=== PATIENT | female | born 1975 | race Two or more races ===

== ENCOUNTER 2018-01-10 19:29 | Emergency (ER) | payer MEDICAID ==
[2018-01-10] MEDS ORDERED: Sodium Chloride 0.9% 1,000 ML IV ONE (20:11)
[2018-01-10] MEDS ORDERED: Morphine Sulfate 4 mg/mL 1mL Syr IV STA (20:15)
[2018-01-10] MEDS ORDERED: Morphine Sulfate 4 mg/mL 1mL Syr ONE (20:19)
--- NOTE | 2018-01-10 20:21 | ED Physician Chart ---
ED Chief Complaint/HPI - Patient Information Date Seen:: 01/10/18 Time Seen:: 20:00 Chief Complaint:: fever, chills, anorexia, diarrhea History of Present Illness:: 5 days ago patient developed chills, subjective fever and anorexia. A few days ago diarrhea started which she has had many times. No vomiting. Patient also has myalgia. No vomiting. Yesterday patient was seen in the clinic and she was noted to have right upper quadrant tenderness but has no right upper quadrant pain. Allergies:: Allergies Allergy/AdvReac Type Severity Reaction Status Date / Time No Known Allergies Allergy Verified 01/10/18 19:53 Vitals:: Vital Signs - 8 hr 01/10/18 19:35 Temp 98.8 F HR 117 RR 18 BP 119/71 O2 Sat % 100 Historian:: Patient Review:: Nurse's Note Reviewed ED Review of Systems - Review of Systems General/Constitutional: Fever, No fever, No weight loss, No weakness, No diaphoresis, No edema, No loss of appetite Skin: No skin lesions, No rash, No bruising Head: No headache, No light-headedness Eyes: No loss of vision, No pain, No diplopia ENT: No earache, No nasal drainage, No sore throat, No tinnitus Neck: No neck pain, No swelling, No thyromegaly, No stiffness, No mass noted Cardio Vascular: No chest pain, No palpitations, No PND, No orthopnea, No edema Pulmonary: No SOB, No cough, No sputum, No wheezing GI: No nausea, No vomiting, Diarrhea, No pain, No melena, No hematochezia, No constipation, No hematemesis G/U: No dysuria, No frequency, No hematuria Musculoskeletal: No bone or joint pain, No back pain, Muscle pain Endocrine: No polyuria, No polydipsia Psychiatric: No prior psych history, No depression, No anxiety, No suicidal ideation Hematopoietic: No bruising, No lymphadenopathy Allergic/Immuno: No urticaria, No angioedema Neurological: No syncope, No focal symptoms, No weakness, No paresthesia, No headache, No seizure, No dizziness, No confusion, No vertigo Family Medical History - Family Member Mother History Unknown: Yes ED Physical Exam - Physical Examination General/Constitutional: Awake, Well-developed, well-nourished, Alert, No distress, GCS 15, Non-toxic appearing, Ambulatory Head: Atraumatic Eyes: Lids, conjuctiva normal, PERRL, EOMI Skin: Nl inspection, No rash, No skin lesions, No ecchymosis, Well hydrated, No lymphadenopathy ENMT: External ears, nose nl, Nasal exam nl, Lips, teeth, gums nl Neck: Nontender, Full ROM w/o pain, No JVD, No nuchal rigidity, No bruit, No mass, No stridor Respiratory: Nl effort/Exclusion, Clear to Auscultation, No Wheeze/Rhonchi/Rales Cardio Vascular: RRR, No murmur, gallop, rubs, NL S1 S2 GI: No organomegaly, No hernia, Normal BS's, Nondistended, No mass/bruits, No McBurney tenderness Other GI comments:: Right upper quadrant tenderness : No CVA tenderness Extremities: No tenderness or effusion, Full ROM, normal strength in all extremities, No edema, Normal digits & nails Neuro/Psych: Alert/oriented, DTR's symmetric, Normal sensory exam, Normal motor strength, Judgement/insight normal, Mood normal, Normal gait, No focal deficits Misc: Normal back, No paraspinal tenderness ED Labs/Radiology/EKG Results - Lab Results Results: Laboratory Results - last 24 hr 01/10/18 01/10/18 20:15 20:15 WBC 11.7 H RBC 4.14 Hgb 10.9 L Hct 33.1 L MCV 79.9 L MCH 26.3 L MCHC Differential 32.9 RDW 16.2 Plt Count 176 MPV 9.2 Add Manual Diff YES Band Neutrophils % 18 H Neutrophils (Manual) 73 Lymphocytes 7 L Monocytes 2 Eosinophils 0 Basophils 0 Platelet Estimate ADEQUATE Platelet Morphology NORMAL Poikilocytosis 2+ Anisocytosis 1+ Microcytosis 1+ Target Cells 1+ Ovalocytes 1+ Kaufman Cells 1+ Schistocytes 1+ RBC Morph Micro Appear ABNORMAL Morphology Comment PLS SEE COMMENT. Smear Path Review SEE BELOW Sodium 134 L Potassium 3.2 L Chloride 103 Carbon Dioxide 20.8 L Anion Gap 13.4 BUN 18 Creatinine 1.2 Est GFR ( Amer) > 60.0 Est GFR (Non-Af Amer) 51.9 BUN/Creatinine Ratio 15.0 Glucose 155 H Calcium 9.1 Total Bilirubin 0.7 AST 27 ALT 21 Alkaline Phosphatase 93 Total Protein 7.8 Albumin 3.2 L Globulin 4.6 Albumin/Globulin Ratio 0.7 L ED Assessment - Assessment General Assessment: Patient appears to have a viral enteritis with diarrhea. Patient has no history of diabetes but her blood sugars 155 so I suggested having a fasting blood sugar done. Suggested patient return to regular diet which she should supplement with half strength Gatorade and extra bananas for her hypokalemia ED Septic Shock - . Is Septic Shock (SBP<90, OR Lactate>4 mmol\L) present?: No - <6hrs of presentation: Vital Signs: Vital Signs - 8 hr 01/10/18 19:35 Temp 98.8 F HR 117 RR 18 BP 119/71 O2 Sat % 100 ED Reassessment (Disposition) - Reassessment Reassessment Condition:: Improved - Diagnosis Diagnosis:: Viral enteritis with diarrhea; hypokalemia; leukocytosis; hyperglycemia; oil and hyponatremia - Aftercare/Follow up Instructions Aftercare/Follow-Up Instructions:: Refer to Discharge Instructions - Patient Disposition Discharge/Transfer:: Home Condition at Disposition:: Stable, Improved
[2018-01-10 20:23] LABS: HEMATOCRIT 33.1 % (41.0-60); HEMOGLOBIN 10.9 gm/dL (12-16); MEAN CELL VOLUME 79.9 fl (81-100); MEAN CORPUSCULAR HEMOGLOBIN 26.3 pg (27.0-31.0); MEAN CORPUSCULAR HGB CONC 32.9 pg (28.0-36.0); MEAN PLATELET VOLUME 9.2 fl; PLATELET COUNT 176 Th/cmm (150-400); RED BLOOD COUNT 4.14 Mil/cmm (3.80-5.10); RED CELL DISTRIBUTION WIDTH 16.2 % (11.5-20.0); WHITE BLOOD COUNT 11.7 Th/cmm (4.8-10.8)
[2018-01-10 20:38] LABS: ALB/GLOB RATIO 0.7 (1.0-1.8); ALBUMIN 3.2 gm/dL (3.7-5.3); ALKALINE PHOSPHATASE 93 U/L (34-104); ANION GAP 13.4 (7.0-16.0); BILIRUBIN,TOTAL 0.7 mg/dL (0.3-1.0); BUN - UREA NITROGEN 18 mg/dL (7-25); CALCIUM SERUM 9.1 mg/dL (8.6-10.3); CARBON DIOXIDE 20.8 mEq/L (21.0-31.0); CHLORIDE 103 mEq/L (98-107); CREATININE - SERUM 1.2 mg/dL (0.6-1.2); GFR AFRICAN-AMERICAN > 60.0 ml/min (>90); GFR NON AFRICAN-AMERICAN 51.9 ml/min; GLUCOSE 155 mg/dL (70-105); POTASSIUM SERUM 3.2 mEq/L (3.5-5.1); SGOT 27 U/L (13-39); SGPT/ALT 21 U/L (7-52); SODIUM SERUM 134 mEq/L (136-145); TOTAL PROTEIN,SERUM 7.8 gm/dL (6.0-8.3)
[2018-01-10] MEDS ORDERED: Potassium Chloride 20 mEq ER Tab PO ONE ×2 (21:02→21:18)
[2018-01-10 21:18] LABS: ANISOCYTOSIS 1+; BAND NEUTROPHILE 18 % (0-10); BASOPHIL 0 % (0-3); EOSINOPHIL 0 % (0-5); LYMPHOCYTE 7 % (20-50); MONOCYTE 2 % (2-10); NEUTROPHILS 73 % (40-80); PLATELET ESTIMATE ADEQUATE (NORMAL); PLATELET MORPHOLOGY NORMAL (NORMAL); POIKILOCYTOSIS 2+
[2018-01-10 21:19] LABS: BURR CELLS 1+; OVALOCYTES 1+; SCHISTOCYTES 1+; TARGET CELLS 1+
[2018-01-10 21:21] LABS: MORPHOLOGY COMMENT PLS SEE COMMENT.
== END 2018-01-10 22:00 | disposition home or self-care (01) ==
LOC: ER 19:29
DX: A08.4 Viral intestinal infection, unspecified (principal); E87.6 Hypokalemia; E87.1 Hypo-osmolality and hyponatremia; D72.829 Elevated white blood cell count, unspecified; R73.9 Hyperglycemia, unspecified
CPT/HCPCS: 36415-UA; 80053-TC; 83735-TC; 85007-TC; 85025-TC; 96374; J7030; Z7502

== ENCOUNTER 2018-01-11 16:39 | Inpatient (IN) | payer MEDICAID ==
[2018-01-11] MEDS ORDERED: Lactated Ringer 1,000 ML IV ONE ×2 (17:10→19:10)
[2018-01-11 17:43] LABS: URINE SOURCE CLEAN C
[2018-01-11 17:48] LABS: URINE BILIRUBIN MODERATE (NEGATIVE); URINE BLOOD NEGATIVE (NEGATIVE); URINE GLUCOSE (UA) NEGATIVE (NEGATIVE); URINE KETONE 15 mg/dL (NEGATIVE); URINE LEUKOCYTE ESTERASE NEGATIVE (NEGATIVE); URINE NITRATE NEGATIVE (NEGATIVE); URINE PROTEIN 100 mg/dL (NEGATIVE)
[2018-01-11 17:51] LABS: HEMATOCRIT 31.9 % (41.0-60); HEMOGLOBIN 10.6 gm/dL (12-16); MEAN CELL VOLUME 79.5 fl (81-100); MEAN CORPUSCULAR HEMOGLOBIN 26.4 pg (27.0-31.0); MEAN CORPUSCULAR HGB CONC 33.2 pg (28.0-36.0); RED BLOOD COUNT 4.01 Mil/cmm (3.80-5.10)
[2018-01-11 17:52] LABS: ALB/GLOB RATIO 0.7 (1.0-1.8); ALBUMIN 3.2 gm/dL (3.7-5.3); ALKALINE PHOSPHATASE 96 U/L (34-104); AMYLASE SERUM 22 U/L (29-103); BILIRUBIN,TOTAL 0.7 mg/dL (0.3-1.0); BUN - UREA NITROGEN 21 mg/dL (7-25); CALCIUM SERUM 9.2 mg/dL (8.6-10.3); CARBON DIOXIDE 20.8 mEq/L (21.0-31.0); CHLORIDE 103 mEq/L (98-107); GFR AFRICAN-AMERICAN > 60.0 ml/min (>90); GFR NON AFRICAN-AMERICAN > 60.0 ml/min; GLUCOSE 146 mg/dL (70-105); LIPASE 13 U/L (11-82); MAGNESIUM 1.9 mg/dL (1.9-2.7); MEAN PLATELET VOLUME 10.3 fl; PHOSPHOROUS 2.7 mg/dL (2.5-5.0); PLATELET COUNT 141 Th/cmm (150-400); POTASSIUM SERUM 3.8 mEq/L (3.5-5.1); RED CELL DISTRIBUTION WIDTH 16.5 % (11.5-20.0); SGOT 26 U/L (13-39); SGPT/ALT 19 U/L (7-52); SODIUM SERUM 133 mEq/L (136-145)
[2018-01-11 17:57] LABS: WHITE BLOOD COUNT 18.6 Th/cmm (4.8-10.8)
[2018-01-11 17:58] LABS: URINE CLARITY CLEAR (CLEAR); URINE COLOR YELLOW; URINE MICROSCOPIC INDICATED? YES
[2018-01-11 18:00] LABS: AMPHETAMINE URINE NEGATIVE (NEGATIVE); BARBITURATES URINE NEGATIVE (NEGATIVE); BENZODIAZEPINES QUAL URINE NEGATIVE (NEGATIVE); CANNABINOID THC NEGATIVE (NEGATIVE); COCAINE METABOLITE QUAL URINE NEGATIVE (NEGATIVE); METHADONE URINE NEGATIVE (NEGATIVE); METHAMPHETAMINES QUAL URINE NEGATIVE (NEGATIVE); OPIATES (MORPHINE) QUAL. URINE POSITIVE (NEGATIVE); PHENCYCLIDINE (PCP) URINE NEGATIVE (NEGATIVE); TRICYCLICS (TCA) QUAL. URINE NEGATIVE (NEGATIVE)
[2018-01-11 18:03] LABS: URINE BACTERIA 2+ /hpf (NONE SEEN); URINE EPITHELIAL CELLS FEW /lpf (FEW); URINE WBC 0-2 /hpf (0-5)
[2018-01-11] MEDS ORDERED: metroNIDAZOLE 500mg/NS 100mL 500 MG/100 ML BAG IV ONE ×2 (18:13→19:35)
[2018-01-11 18:19] LABS: BAND NEUTROPHILE 7 % (0-10); NEUTROPHILS 81 % (40-80)
[2018-01-11 18:20] LABS: LYMPHOCYTE 9 % (20-50); MONOCYTE 3 % (2-10)
[2018-01-11 18:36] LABS: INR 1.02 (0.5-1.4); PROTHROMBIN TIME (TEST) 10.6 SECONDS (9.5-11.5)
[2018-01-11] MEDS ORDERED: IOHEXOL 350mgI/mL 100mL Bottle IVP ONE (18:36)
[2018-01-11] MEDS ORDERED: IOHEXOL 350mgI/mL 150mL IV ONE (18:59)
--- NOTE | 2018-01-11 19:03 | ED Physician Chart ---
ED Chief Complaint/HPI - Patient Information Date Seen:: 01/11/18 Time Seen:: 16:57 Chief Complaint:: abd pain, diarrhea, myalgias History of Present Illness:: abd pain, diarrhea, myalgias Allergies:: Allergies Allergy/AdvReac Type Severity Reaction Status Date / Time No Known Allergies Allergy Verified 01/10/18 19:53 Vitals:: Vital Signs - 8 hr 01/11/18 01/11/18 01/11/18 16:57 18:04 18:38 Temp 98.6 F 98.4 F 99.3 F HR 102 103 105 RR 18 27 25 BP 139/77 127/71 124/66 O2 Sat % 100 98 100 Historian:: Patient Review:: Nurse's Note Reviewed ED Review of Systems - Review of Systems General/Constitutional: No fever, No chills, No weight loss, Weakness, No diaphoresis, No edema, No loss of appetite Skin: No skin lesions, No rash, No bruising Head: No headache, No light-headedness Eyes: No loss of vision, No pain, No diplopia Neck: No neck pain, No swelling, No thyromegaly, No stiffness, No mass noted Pulmonary: SOB GI: Nausea, No vomiting, Diarrhea G/U: No dysuria, No frequency, No hematuria Musculoskeletal: Muscle pain Endocrine: No polyuria, No polydipsia Psychiatric: No prior psych history, No depression, No anxiety, No suicidal ideation Hematopoietic: No bruising, No lymphadenopathy Allergic/Immuno: No urticaria, No angioedema Neurological: No syncope, No focal symptoms, No weakness, No paresthesia, No headache, No seizure, No dizziness, No confusion, No vertigo ED Past Medical History - Past Medical History Obtainable: Yes Surgical History: other (gastric sleeve; tubal ligation) Family Medical History - Family Member Mother History Unknown: Yes ED Physical Exam - Physical Examination General/Constitutional: Awake Other Gen/Cons comments:: ill-appearing female. obese. Head: Atraumatic Eyes: Lids, conjuctiva normal, PERRL, EOMI Skin: Nl inspection, No rash, No skin lesions, No ecchymosis, No lymphadenopathy Other ENMT comments:: dry mucous membranes. Neck: Nontender, Full ROM w/o pain, No JVD, No nuchal rigidity, No bruit, No mass, No stridor Respiratory: Nl effort/Exclusion, Clear to Auscultation, No Wheeze/Rhonchi/Rales Other Cardio Vascular comments:: tachycardia GI: No tenderness/rebounding/guarding, No organomegaly, No hernia, Normal BS's, Nondistended, No mass/bruits, No McBurney tenderness Other GI comments:: RUQ tenderness to palpation. No peritoneal signs. Obese abdomen. : No CVA tenderness Other Extremities comments:: R ankle with medial swelling and redness. Negative Isaac's. No calf tenderness. Neuro/Psych: Alert/oriented, Normal sensory exam, Normal motor strength, Judgement/insight normal, Mood normal Misc: Normal back, No paraspinal tenderness ED Labs/Radiology/EKG Results - Lab Results Results: Laboratory Tests 01/11/18 01/11/18 01/11/18 17:15 17:15 17:25 WBC 18.6 H D RBC 4.01 Hgb 10.6 L Hct 31.9 L MCV 79.5 L MCH 26.4 L MCHC Differential 33.2 RDW 16.5 Plt Count 141 L MPV 10.3 Add Manual Diff YES Neutrophils % [employer] PROGRAM DIRECTOR Band Neutrophils % 7 Lymphocytes % MEMORY CARE PROGRAM DIRECTOR Monocytes % MEMORY CARE PROGRAM DIRECTOR Eosinophils % MEMORY CARE PROGRAM DIRECTOR Basophils % MEMORY CARE PROGRAM DIRECTOR Neutrophils (Manual) 81 H Lymphocytes 9 L Monocytes 3 Microcytosis 1+ PT INR PTT (Actin FS) D-Dimer Sodium Potassium Chloride Carbon Dioxide Anion Gap BUN Creatinine Est GFR ( Amer) Est GFR (Non-Af Amer) BUN/Creatinine Ratio Glucose Whole Bld Lactic Acid Calcium Phosphorus Magnesium Total Bilirubin AST ALT Alkaline Phosphatase Total Protein Albumin Globulin Albumin/Globulin Ratio Amylase Lipase Urine Source CLEAN C Urine Color YELLOW Urine Clarity CLEAR Urine pH 6.0 Ur Specific [place] 1.025 Urine Protein 100 H Urine Glucose (UA) NEGATIVE Urine Ketones 15 H Urine Blood NEGATIVE Urine Nitrate NEGATIVE Urine Bilirubin MODERATE H Urine Ictotest Not Reportable Urine Urobilinogen 1.0 Ur Leukocyte Esterase NEGATIVE Urine RBC 2-5 Urine WBC 0-2 Ur Epithelial Cells FEW Urine Bacteria 2+ H Urine Mucus FEW Urine Opiates Screen POSITIVE H Urine Methadone Screen NEGATIVE Ur Barbiturates Screen NEGATIVE Ur Tricyclics Screen NEGATIVE Ur Phencyclidine Scrn NEGATIVE Amphetamines Screen NEGATIVE U Methamphetamines Scrn NEGATIVE U Benzodiazepines Scrn NEGATIVE U Cocaine Metab Screen NEGATIVE U Cannabinoids Screen NEGATIVE 01/11/18 01/11/1818 17:25 17:25 17:25 WBC RBC Hgb Hct MCV MCH MCHC Differential RDW Plt Count MPV Add Manual Diff Neutrophils % Band Neutrophils % Lymphocytes % Monocytes % Eosinophils % Basophils % Neutrophils (Manual) Lymphocytes Monocytes Microcytosis PT INR PTT (Actin FS) D-Dimer 3890 H Sodium 133 L Potassium 3.8 Chloride 103 Carbon Dioxide 20.8 L Anion Gap 13.0 BUN 21 Creatinine 1.0 Est GFR ( Amer) > 60.0 Est GFR (Non-Af Amer) > 60.0 BUN/Creatinine Ratio 21.0 Glucose 146 H Whole Bld Lactic Acid 1.59 Calcium 9.2 Phosphorus 2.7 Magnesium 1.9 Total Bilirubin 0.7 AST 26 ALT 19 Alkaline Phosphatase 96 Total Protein 8.0 Albumin 3.2 L Globulin 4.8 Albumin/Globulin Ratio 0.7 L Amylase 22 L Lipase 13 Urine Source Urine Color Urine Clarity Urine pH Ur Specific [place] Urine Protein Urine Glucose (UA) Urine Ketones Urine Blood Urine Nitrate Urine Bilirubin Urine Ictotest Urine Urobilinogen Ur Leukocyte Esterase Urine RBC Urine WBC Ur Epithelial Cells Urine Bacteria Urine Mucus Urine Opiates Screen Urine Methadone Screen Ur Barbiturates Screen Ur Tricyclics Screen Ur Phencyclidine Scrn Amphetamines Screen U Methamphetamines Scrn U Benzodiazepines Scrn U Cocaine Metab Screen U Cannabinoids Screen 01/11/18 17:25 WBC RBC Hgb Hct MCV MCH MCHC Differential RDW Plt Count MPV Add Manual Diff Neutrophils % Band Neutrophils % Lymphocytes % Monocytes % Eosinophils % Basophils % Neutrophils (Manual) Lymphocytes Monocytes Microcytosis PT 10.6 INR 1.02 PTT (Actin FS) 31.9 D-Dimer Sodium Potassium Chloride Carbon Dioxide Anion Gap BUN Creatinine Est GFR ( Amer) Est GFR (Non-Af Amer) BUN/Creatinine Ratio Glucose Whole Bld Lactic Acid Calcium Phosphorus Magnesium Total Bilirubin AST ALT Alkaline Phosphatase Total Protein Albumin Globulin Albumin/Globulin Ratio Amylase Lipase Urine Source Urine Color Urine Clarity Urine pH Ur Specific [place] Urine Protein Urine Glucose (UA) Urine Ketones Urine Blood Urine Nitrate Urine Bilirubin Urine Ictotest Urine Urobilinogen Ur Leukocyte Esterase Urine RBC Urine WBC Ur Epithelial Cells Urine Bacteria Urine Mucus Urine Opiates Screen Urine Methadone Screen Ur Barbiturates Screen Ur Tricyclics Screen Ur Phencyclidine Scrn Amphetamines Screen U Methamphetamines Scrn U Benzodiazepines Scrn U Cocaine Metab Screen U Cannabinoids Screen ED Assessment - Assessment General Assessment: phone call to Dr. Viveros prior to change in shift to give him report at 18:55 p.m. Assessment/Comments:: sign out given to Dr. Samuel at 7 p.m. report (prior to GIRISH and CT angiogram) given to Dr. Viverso who is giving admit orders right now at 7:09 p.m. ED Septic Shock - . Is Septic Shock (SBP<90, OR Lactate>4 mmol\L) present?: No - <6hrs of presentation: Vital Signs: Vital Signs - 8 hr 01/11/18 01/11/18 01/11/18 16:57 18:04 18:38 Temp 98.6 F 98.4 F 99.3 F HR 102 103 105 RR 18 27 25 BP 139/77 127/71 124/66 O2 Sat % 100 98 100 ED Reassessment (Disposition) - Reassessment Reassessment Condition:: Unchanged - Diagnosis Diagnosis:: Sepsis Cholecystitis Leukocytosis Diarrhea Proteinuria Bilirubin in urine Possible Hepatitis A, B or C Anemia - Patient Disposition Discharge/Transfer:: Acute Care w/in this hosp Admitted to:: ICU Condition at Disposition:: Stable, Unchanged
[2018-01-11] MEDS ORDERED: D5-0.45NS 1,000 ML IV SCH (21:00)
[2018-01-11 21:28] VITALS: BP 99/55
[2018-01-11] MEDS ORDERED: Piperacillin Sodium/Tazobact 3.375 gm Vial IV ONE (22:36)
[2018-01-11] MEDS: Morphine Sulfate 2 mg/mL 1mL Syr IVP PRN (22:52)
[2018-01-11] MEDS: D5-0.45NS 1,000 ML IV SCH (22:52)
--- NOTE | 2018-01-11 23:36 | Consultation ---
Consult Note - Consult Note Service Date: 01/11/18 Referring Physician: Ollie Viveros Consult Note: PHYSICIAN Consultation Note: Date of Admission: 01/11/18 Purpose of Consultation: Sepsis/ Chief Complaint: Patient YEIMY LEÓN was admitted to location Intensive Care Unit with SEPSIS, RULE OUT CHOLECYSTITIS. History of Present Illness: 42-year-old female with no significant medical conditions, presented to the ED for generalized sharp abdominal pains associated with diarrhea. She ahd complained of fevers and chills. On initial evaluation, her temperature was 98.6 F and WBC Count was 18,600. Vanco IV 2G IV x1 with Zosyn and flagyl were started and ID consult was called for antibiotic management. 3L IV NS boluses were given in total and IV fluid increased to 150ml/hr as her SBP was in 90s. patient denies any relation with any food or travels. Past Medical History: None. Gastric bypass surgery. ESSURE placed in b/l fallopian tube ( control device). Allergies Allergy/AdvReac Type Severity Reaction Status Date / Time No Known Allergies Allergy Verified 01/10/18 19:53 Vital Signs Temp 99.3 F 01/11/18 18:38 Pulse 105 01/11/18 18:38 Resp 25 01/11/18 18:38 BP 99/55 01/11/18 21:27 Pulse Ox 100 01/11/18 18:38 Intake & Output 01/11/18 01/11/18 01/12/18 06:59 18:59 06:59 Weight (lbs) 107.955 kg 107.955 kg 110.268 kg Other: Weight [facility] Laboratory Results - last 24 hr 01/11/18 01/11/18 01/11/18 17:15 17:15 17:25 WBC 18.6 H D RBC 4.01 Hgb 10.6 L Hct 31.9 L MCV 79.5 L MCH 26.4 L MCHC Differential 33.2 RDW 16.5 Plt Count 141 L MPV 10.3 Add Manual Diff YES Neutrophils % [employer] SUPERVISOR Band Neutrophils % 7 Lymphocytes % [employer]ITE [employer]GAR SUPERVISOR Monocytes % WHITE [employer]GAR SUPERVISOR Eosinophils % WHITE [employer] SUPERVISOR Basophils % WHITE [employer] SUPERVISOR Neutrophils (Manual) 81 H Lymphocytes 9 L Monocytes 3 Microcytosis 1+ ESR PT INR PTT (Actin FS) D-Dimer Sodium Potassium Chloride Carbon Dioxide Anion Gap BUN Creatinine Est GFR ( Amer) Est GFR (Non-Af Amer) BUN/Creatinine Ratio Glucose POC Glucose Whole Bld Lactic Acid Calcium Phosphorus Magnesium Total Bilirubin AST ALT Alkaline Phosphatase Creatine Kinase Total Protein Albumin Globulin Albumin/Globulin Ratio Amylase Lipase Urine Source CLEAN C Urine Color YELLOW Urine Clarity CLEAR Urine pH 6.0 Ur Specific [place] 1.025 Urine Protein 100 H Urine Glucose (UA) NEGATIVE Urine Ketones 15 H Urine Blood NEGATIVE Urine Nitrate NEGATIVE Urine Bilirubin MODERATE H Urine Ictotest Not Reportable Urine Urobilinogen 1.0 Ur Leukocyte Esterase NEGATIVE Urine RBC 2-5 Urine WBC 0-2 Ur Epithelial Cells FEW Urine Bacteria 2+ H Urine Mucus FEW Urine Opiates Screen POSITIVE H Urine Methadone Screen NEGATIVE Ur Barbiturates Screen NEGATIVE Ur Tricyclics Screen NEGATIVE Ur Phencyclidine Scrn NEGATIVE Amphetamines Screen NEGATIVE U Methamphetamines Scrn NEGATIVE U Benzodiazepines Scrn NEGATIVE U Cocaine Metab Screen NEGATIVE U Cannabinoids Screen NEGATIVE 01/11/18 01/11/18 01/11/18 17:25 17:25 17:25 WBC RBC Hgb Hct MCV MCH MCHC Differential RDW Plt Count MPV Add Manual Diff Neutrophils % Band Neutrophils % Lymphocytes % Monocytes % Eosinophils % Basophils % Neutrophils (Manual) Lymphocytes Monocytes Microcytosis ESR 57 H PT INR PTT (Actin FS) D-Dimer Sodium 133 L Potassium 3.8 Chloride 103 Carbon Dioxide 20.8 L Anion Gap 13.0 BUN 21 Creatinine 1.0 Est GFR ( Amer) > 60.0 Est GFR (Non-Af Amer) > 60.0 BUN/Creatinine Ratio 21.0 Glucose 146 H POC Glucose Whole Bld Lactic Acid 1.59 Calcium 9.2 Phosphorus 2.7 Magnesium 1.9 Total Bilirubin 0.7 AST 26 ALT 19 Alkaline Phosphatase 96 Creatine Kinase Total Protein 8.0 Albumin 3.2 L Globulin 4.8 Albumin/Globulin Ratio 0.7 L Amylase 22 L Lipase 13 Urine Source Urine Color Urine Clarity Urine pH Ur Specific [place] Urine Protein Urine Glucose (UA) Urine Ketones Urine Blood Urine Nitrate Urine Bilirubin Urine Ictotest Urine Urobilinogen Ur Leukocyte Esterase Urine RBC Urine WBC Ur Epithelial Cells Urine Bacteria Urine Mucus Urine Opiates Screen Urine Methadone Screen Ur Barbiturates Screen Ur Tricyclics Screen Ur Phencyclidine Scrn Amphetamines Screen U Methamphetamines Scrn U Benzodiazepines Scrn U Cocaine Metab Screen U Cannabinoids Screen 01/11/18 01/11/18 01/11/18 17:25 17:25 17:25 WBC RBC Hgb Hct MCV MCH MCHC Differential RDW Plt Count MPV Add Manual Diff Neutrophils % Band Neutrophils % Lymphocytes % Monocytes % Eosinophils % Basophils % Neutrophils (Manual) Lymphocytes Monocytes Microcytosis ESR PT 10.6 INR 1.02 PTT (Actin FS) 31.9 D-Dimer 3890 H Sodium Potassium Chloride Carbon Dioxide Anion Gap BUN Creatinine Est GFR ( Amer) Est GFR (Non-Af Amer) BUN/Creatinine Ratio Glucose POC Glucose Whole Bld Lactic Acid Calcium Phosphorus Magnesium Total Bilirubin AST ALT Alkaline Phosphatase Creatine Kinase 111 Total Protein Albumin Globulin Albumin/Globulin Ratio Amylase Lipase Urine Source Urine Color Urine Clarity Urine pH Ur Specific [place] Urine Protein Urine Glucose (UA) Urine Ketones Urine Blood Urine Nitrate Urine Bilirubin Urine Ictotest Urine Urobilinogen Ur Leukocyte Esterase Urine RBC Urine WBC Ur Epithelial Cells Urine Bacteria Urine Mucus Urine Opiates Screen Urine Methadone Screen Ur Barbiturates Screen Ur Tricyclics Screen Ur Phencyclidine Scrn Amphetamines Screen U Methamphetamines Scrn U Benzodiazepines Scrn U Cocaine Metab Screen U Cannabinoids Screen 01/11/18 01/11/18 19:55 20:48 WBC RBC Hgb Hct MCV MCH MCHC Differential RDW Plt Count MPV Add Manual Diff Neutrophils % Band Neutrophils % Lymphocytes % Monocytes % Eosinophils % Basophils % Neutrophils (Manual) Lymphocytes Monocytes Microcytosis ESR PT INR PTT (Actin FS) D-Dimer 3890 H Sodium Potassium Chloride Carbon Dioxide Anion Gap BUN Creatinine Est GFR ( Amer) Est GFR (Non-Af Amer) BUN/Creatinine Ratio Glucose POC Glucose 99 Whole Bld Lactic Acid Calcium Phosphorus Magnesium Total Bilirubin AST ALT Alkaline Phosphatase Creatine Kinase Total Protein Albumin Globulin Albumin/Globulin Ratio Amylase Lipase Urine Source Urine Color Urine Clarity Urine pH Ur Specific [place] Urine Protein Urine Glucose (UA) Urine Ketones Urine Blood Urine Nitrate Urine Bilirubin Urine Ictotest Urine Urobilinogen Ur Leukocyte Esterase Urine RBC Urine WBC Ur Epithelial Cells Urine Bacteria Urine Mucus Urine Opiates Screen Urine Methadone Screen Ur Barbiturates Screen Ur Tricyclics Screen Ur Phencyclidine Scrn Amphetamines Screen U Methamphetamines Scrn U Benzodiazepines Scrn U Cocaine Metab Screen U Cannabinoids Screen Home Medication Medication Instructions Recorded Type NK [No Home Meds] 01/11/18 History Current Medications Generic Name Dose Route Start Last Admin Trade Name Freq PRN Reason Stop Dose Admin Metronidazole 500 mg in 100 mls @ 100 mls/hr 01/12/18 05:00 Flagyl IV 03/13/18 04:59 Q8HR JOSE Vancomycin HCl 1 gm/ Sodium 250 mls @ 165 mls/hr 01/11/18 19:55 Chloride IV 03/12/18 19:54 Q24H JOSE Piperacillin Sod/Tazobactam 50 mls @ 100 mls/hr 01/12/18 00:00 Sod 3.375 gm/ Sodium Chloride IV 03/13/18 00:00 Q6HR JOSE Protocol Vancomycin HCl 1.25 gm/ Sodium 250 mls @ 165 mls/hr 01/11/18 22:30 01/11/18 22:51 Chloride IV 01/12/18 01:30 165 mls/hr 2230 JOSE Administration Dextrose/Sodium Chloride 1,000 mls @ 150 mls/hr 01/11/18 22:50 01/11/18 22:52 D5-0.45ns IV 03/12/18 22:49 150 mls/hr .[id number] JOSE Administration Miscellaneous 1 ea 01/11/18 21:59 Vancomycin Iv Per Pharmacy 03/12/18 21:58 ONCE PRN PROTOCOL Miscellaneous 1 ea 01/11/18 23:28 Vancomycin Iv Per Pharmacy 03/12/18 23:27 PRN PRN PROTOCOL Morphine Sulfate 1 mg 01/11/18 22:28 01/11/18 22:52 Morphine IVP 03/12/18 22:27 1 mg Q3H PRN Administration Severe Pain Ondansetron HCl 4 mg 01/11/18 19:55 Zofran IV 03/12/18 19:54 Q4HR PRN nausea/vomit Pantoprazole Sodium 40 mg 01/12/18 07:30 Protonix IVP 03/13/18 07:29 QDAC [facility] Review of Systems: A 12 point ROS was reviewed with the pertinent positive and negatives noted in the HPI. General/Constitutional: c/o fever and chills. No weight loss, Weakness, No diaphoresis, No edema, No loss of appetite Skin: No skin lesions, No rash, No bruising Head: No headache, No light-headedness Eyes: No loss of vision, No pain, No diplopia Neck: No neck pain, No swelling, No thyromegaly, No stiffness, No mass noted Pulmonary: SOB GI: Nausea, No vomiting, Diarrhea G/U: No dysuria, No frequency, No hematuria Musculoskeletal: Muscle pain Endocrine: No polyuria, No polydipsia Psychiatric: No prior psych history, No depression, No anxiety, No suicidal ideation Hematopoietic: No bruising, No lymphadenopathy Allergic/Immuno: No urticaria, No angioedema Neurological: No syncope, No focal symptoms, No weakness, No paresthesia, No headache, No seizure, No dizziness, No confusion, No vertigo Social History Smoking Status Never smoker Family Medical History Unknown. Physical Exam: General: Comfortable. not in any acute distress. HEENT: HEAD: Normocephalic, atraumatic. ORAL CAVITY: moist, pink tongue. EYES: Pupil PERRLA. EOMI. Neck: Supple, no JVD, no Carotid bruit. Cardio: S1 and S2 WNL Respiratory: CTAP. Abdominal: Soft generalized tenderness, BS present. Genital/Urinary: Deferred. Extremities: NCCE. Neurological: Alert awake, oriented x3, No focal neuro deficit. Assessment: 1. Septic shock. 2. Abdominal pain with wide differential includes, Gastroenteritis, Cholecystitis, appendicitis, Essure infection and others. Not limited to the above mentioned. 3. H/o Gastric bypass. Plan: Will continue Zosyn and flagyl. stool studies. IVF bolus. IVF increase to 200ml for 4 hrs and then decrease IVF to 150ml/hr. Sepsis w/u. Gyne consult. If patient does not get better, than transfer to the higher level of care, with gynecological services available. Thank you, I will follow with you. Swathi, Polo Bales M.D. [id number]
[2018-01-12] MEDS: metroNIDAZOLE 500mg/NS 100mL 500 MG/100 ML BAG IV SCH ×3 (05:09→20:54)
[2018-01-12 05:13] LABS: HEMATOCRIT 25.2 % (41.0-60); HEMOGLOBIN 8.4 gm/dL (12-16); MEAN CELL VOLUME 78.8 fl (81-100); MEAN CORPUSCULAR HEMOGLOBIN 26.3 pg (27.0-31.0); MEAN CORPUSCULAR HGB CONC 33.4 pg (28.0-36.0); MEAN PLATELET VOLUME 9.8 fl; PLATELET COUNT 101 Th/cmm (150-400); RED BLOOD COUNT 3.21 Mil/cmm (3.80-5.10); RED CELL DISTRIBUTION WIDTH 16.4 % (11.5-20.0)
[2018-01-12 05:33] LABS: ALB/GLOB RATIO 0.7 (1.0-1.8); ALBUMIN 2.4 gm/dL (3.7-5.3); ALKALINE PHOSPHATASE 70 U/L (34-104); ANION GAP 9.1 (7.0-16.0); BILIRUBIN,TOTAL 0.7 mg/dL (0.3-1.0); BUN - UREA NITROGEN 14 mg/dL (7-25); CARBON DIOXIDE 21.2 mEq/L (21.0-31.0); CHLORIDE 107 mEq/L (98-107); CREATININE - SERUM 0.8 mg/dL (0.6-1.2); GFR AFRICAN-AMERICAN > 60.0 ml/min (>90); GFR NON AFRICAN-AMERICAN > 60.0 ml/min; GLUCOSE 214 mg/dL (70-105); MAGNESIUM 1.8 mg/dL (1.9-2.7); POTASSIUM SERUM 3.3 mEq/L (3.5-5.1); SGOT 19 U/L (13-39); SGPT/ALT 13 U/L (7-52); SODIUM SERUM 134 mEq/L (136-145)
[2018-01-12 05:42] LABS: WHITE BLOOD COUNT 18.6 Th/cmm (4.8-10.8)
[2018-01-12] MEDS ORDERED: Piperacillin Sodium/Tazobact 3.375 gm Vial IV ONE (06:03)
[2018-01-12 06:42] LABS: BAND NEUTROPHILE 1 % (0-10); LYMPHOCYTE 5 % (20-50); MONOCYTE 4 % (2-10); NEUTROPHILS 90 % (40-80)
[2018-01-12] MEDS: D5-0.45NS 1,000 ML IV SCH ×2 (08:28→16:19)
--- NOTE | 2018-01-12 08:32 | Diagnostic Imaging Report ---
CT pulmonary angiogram with intravenous contrast History: Pulmonary embolism Total DLP equals 370 CTDI equals 10.2 Following administration of intravenous contrast, axial sections were obtained from a level above the clavicles down to a level below the diaphragm. The exam demonstrates normal opacification of the main right and left pulmonary arteries. No intraluminal lesions are seen. Specifically, no evidence of pulmonary embolism. There is preservation of normal fat planes throughout the mediastinum. No lymphadenopathy is seen. Incidentally noted osteochondroma of the upper left ribs extending into the pericardial space. Clinical correlation recommended. No abnormal focal pulmonary parenchymal masses or nodules are seen. No pleural effusions. Impression: No evidence of pulmonary emboli bilaterally. 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
--- NOTE | 2018-01-12 09:37 | Diagnostic Imaging Report ---
Exam: Pelvic ultrasound. HISTORY: Foreign bodies in uterus, sepsis 5. Skull Real-time ultrasound summation of pelvis was performed utilizing transvaginal technique. The study extremely limited due to large amount of intra-abdominal bowel gas. The uterus is enlarged measuring 18.2 x 12.3 x 12.9 cm diameter. Age endometrial thickness was not visualized. The adnexa is poorly seen ovaries not visualized. There is evidence of fibrotic aeration of the uterus throughout. Endometrial thickness is not seen. IMPRESSION: Enlargement of the uterus with fibroid infiltration. The study extremely limited due to size of patient as well as large amount of intra-abdominal bowel gas. Ovaries not visualized. Endometrial thickness is not seen.
--- NOTE | 2018-01-12 09:39 | Diagnostic Imaging Report ---
Exam: Ultrasound examination abdomen HISTORY: Sepsis Findings: Real-time ultrasound examination abdomen performed multiple planes. The study demonstrates unremarkable appearance of liver parenchyma. The gallbladder is poorly seen there is no evidence of cholelithiasis. The common bile duct measures 3 mm. The pancreas not seen. There is no evidence of obstructive uropathy or nephrolithiasis. IMPRESSION: extremely limited examination of the abdomen. No evidence for cholelithiasis. Clinical correlation recommended.
--- NOTE | 2018-01-12 09:41 | Diagnostic Imaging Report ---
Portable chest x-ray Time: 180 History: Sepsis Allowing for portable technique the heart size is normal. No focal pulmonary parenchymal processes. No hilar or mediastinal abnormalities. There is a nodularity in left midlung, CT examination of the chest demonstrated the osteochondroma off one of the left lateral rib. Impression: No acute abnormalities.
--- NOTE | 2018-01-12 09:45 | Diagnostic Imaging Report ---
Exam: CT examination abdomen pelvis. HISTORY: Abdominal pain. Total DLP equals 840 CTDI equals 11.5 Findings: Multiple contiguous thin section of the abdomen pelvis obtained from lower thorax to pubic symphysis without the administration of oral intravenous contrast material, no prior studies available comparison The study demonstrates normal aeration of lung parenchyma the bases. The liver and spleen intact. Gastric bypass procedure sequela appreciated. The gallbladder free of calculi. The kidneys demonstrate no evidence of obstructive uropathy or nephrolithiasis. No free fluid is noted. There is evidence for enlargement of the uterus extending in the upper abdomen. Fibroid infiltration cannot be excluded. There is evidence of for review pattern bodies in the uterus which might represent previous a tubal ligation procedure sequela. No free fluid is noted. Bony structures demonstrate no evidence for lytic or blastic changes There is evidence of for appears to be 9 lucency in the body of the L5 lumbar vertebra bowel cyst cannot be excluded. Clinical correlation recommended. Most might be helpful IMPRESSION: Significant distended enlarged uterus most likely due to fibroid infiltration Metallic linear foreign bodies within the uterus most likely represent previous tubal ligation sequela Clinical correlation recommended. Previous gastric bypass surgery. Incidentally noted a large osteochondroma of one of the upper mid left ribs extending into the pericardial space. Clinical correlation recommended
--- NOTE | 2018-01-12 09:46 | Diagnostic Imaging Report ---
Exam: Right ankle joint. HISTORY: Pain swelling Multiple views of the right ankle reviewed. The study demonstrates no evidence of fracture dislocation. The ankle mortise intact. There is no evidence of soft tissue swelling. IMPRESSION:: unremarkable examination of the right ankle joint.
--- NOTE | 2018-01-12 12:34 | History & Physical ---
ADMIT DATE: 01/12/2018 CHIEF COMPLAINT: Fever, body aches, abdominal pain. HISTORY OF PRESENT ILLNESS: This is a 42-year-old female with no major medical history, who per 's account has been feeling somewhat ill for the last 2 weeks or so, complaining of nonspecific abdominal pain and occasional body aches, nausea, vomiting. They came back from vacation from [place] about a week ago and as soon after she came back, apparently she got worst with tactile fever, chills, worsening abdominal pain, some diarrhea as well as persistent nausea and vomiting. She went to [facility] and came to our ER couple of days ago, but no major findings were noted. Last night, she returned to the ED (persistent abdominal pain, diarrhea, fever, chills, body aches). Pertinent findings at the ED included a white count of 18.6 with some bandemia and an elevated D-dimer (3890). She was noted to have fevers and tachycardic. She was stabilized in the ED with IV fluids and was given vancomycin and Zosyn and now has been admitted to the ICU for further management and care. She reports having a gastric sleeve done about 2 years ago with initial weight loss, but now with some weight gain over the last few months, but currently denies any unusual p.o. intake and no family members have gotten sick over the last few weeks. PAST MEDICAL HISTORY: As noted above. PAST SURGICAL HISTORY: She had a tubal ligation about 4 years ago. FAMILY HISTORY: Her dad had diabetes and hypertension, otherwise negative. SOCIAL HISTORY: No tobacco, social alcohol, no IVDA. She lives at home with family. ALLERGIES: NKDA. OUTPATIENT MEDICATIONS: None. REVIEW OF SYSTEMS: CONSTITUTIONAL: Only fever and chills over the last couple of weeks, more pronounced over the last few days. Denies any recent weight loss. HEAD AND NECK: Denies any neck pain or headaches. CARDIAC: No chest pain or palpitations. PULMONARY: She denies any cough, any phlegm production. GASTROINTESTINAL: Please refer to HPI. Nonspecific abdominal pain, not related to p.o. intake per se. She also denies any hematemesis, but does report nausea and vomiting. She also over the last 2-3 days has had diarrhea, but no bright red blood per rectum or melena. GENITOURINARY: Denies any UTI symptomatology. NEUROLOGIC: No syncope, no changes in vision. Denies any headaches. MUSCULOSKELETAL: She does complain of right ankle pain. PHYSICAL EXAMINATION: VITAL SIGNS: Current temperature is 97.9, T-max 102.2, pulse 93, respirations 25, BP 108/61, satting 100% on room air. GENERAL: She is a well-developed, moderately obese female, currently not in acute distress. She is awake, alert and oriented x 3, complaining of nonspecific abdominal pain and distention. HEAD AND NECK: Normocephalic, atraumatic. Pupils are reactive to light. Extraocular movements are intact. Oropharynx has some dry mucous membranes. NECK: There is no JVD. There is no LAD. There is full range of motions. There are no meningeal signs. CARDIAC: Regular rate and rhythm without any murmurs. LUNGS: Clear to auscultation bilaterally. ABDOMEN: Soft, mildly distended. It is tender to palpation epigastrically and on the right upper quadrant. Currently, there is normoactive bowel sounds and there is no noticeable peritoneal signs at this time. EXTREMITIES: On lower extremities, there is trace edema. NEUROLOGIC: Grossly intact, nonfocal. Cranial nerves 2-12 are within normal limits. LABORATORY DATA: On admission, white count 18.6, H and H 02/06 with a platelet count of 141, 81% neutrophils. INR 1.02. D-dimer 3890. Sodium 133, potassium 3.8, chloride 103, CO2 20.8 with a glucose of 146. LFTs were essentially within normal limits. Albumin 3.2. Lipase 13. UA shows positive for protein and ketones, moderate bilirubin and 2+ bacteria. U-tox, positive for opiates. DIAGNOSTICS: There is an abdominal ultrasound showing no evidence of cholelithiasis. A CT of chest, abdomen and pelvis showed no evidence of PE. There was a large osteochondroma on the left mid rib extending into the pericardial space, otherwise within normal limits and a transvaginal ultrasound showed enlargement of the uterus with fibroid infiltration. Endometrial thickness was not seen. ASSESSMENT: 1. Sepsis shock. Differential is likely an abdominal source (rule out cholecystitis versus appendicitis versus acute gastroenteritis). Other concerns include gastric source given her gastric bypass surgery vs uti/pelvic source. 2. Leukocytosis with bandemia. 3. Elevated D-dimer. 4. Mild anemia. PLAN: The patient has been admitted to the ICU for further management and care. The patient has been placed on IV Zosyn, vancomycin, and Flagyl. The patient has been pancultured and is currently getting IV fluids and supportive care including Zofran and pain management. A HIDA scan has been asked to rule out cholecystitis and GI as well as ID consult also has been ordered. JOB# [id number] [facility]
[2018-01-12 16:09] LABS: HEP A AB IGM Negative (Negative); HEP B CORE IGM Negative (Negative); HEP B SURFACE AG QL Negative (Negative); HEP C ANTIBODY 0.1 s/co ratio (0.0-0.9)
[2018-01-12] MEDS ORDERED: Potassium Chloride 20 mEq ER Tab PO ONE (17:18)
[2018-01-12] MEDS: Morphine Sulfate 2 mg/mL 1mL Syr IVP PRN (20:59)
[2018-01-13] MEDS: metroNIDAZOLE 500mg/NS 100mL 500 MG/100 ML BAG IV SCH ×3 (04:35→20:41)
[2018-01-13 05:10] LABS: % BASOPHILS 0.2 % (0.0-2.0); % EOSINOPHILS 0.5 % (0.0-5.0); % LYMPHOCYTES 6.1 % (20.0-50.0); % NEUTROPHILS 87.2 % (40.0-80.0); EOSINOPHILE ABSOLUTE 0.1 Th/cmm (0.1-0.4); HEMOGLOBIN 8.9 gm/dL (12-16); MEAN CELL VOLUME 78.8 fl (81-100); MEAN CORPUSCULAR HGB CONC 32.9 pg (28.0-36.0); MEAN PLATELET VOLUME 10.6 fl; NEUTROPHILE ABSOLUTE 14.2 Th/cmm (1.8-8.0); PLATELET COUNT 132 Th/cmm (150-400); RED BLOOD COUNT 3.42 Mil/cmm (3.80-5.10); RED CELL DISTRIBUTION WIDTH 16.8 % (11.5-20.0)
[2018-01-13 05:13] LABS: WHITE BLOOD COUNT 16.3 Th/cmm (4.8-10.8)
[2018-01-13 05:44] LABS: ALB/GLOB RATIO 0.7 (1.0-1.8); ALBUMIN 2.6 gm/dL (3.7-5.3); ALKALINE PHOSPHATASE 70 U/L (34-104); ANION GAP 10.8 (7.0-16.0); BILIRUBIN,DIRECT 0.24 mg/dL (0.0-0.2); BILIRUBIN,TOTAL 0.6 mg/dL (0.3-1.0); BUN - UREA NITROGEN 7 mg/dL (7-25); CALCIUM SERUM 8.7 mg/dL (8.6-10.3); CARBON DIOXIDE 22.7 mEq/L (21.0-31.0); CHLORIDE 106 mEq/L (98-107); CREATININE - SERUM 0.7 mg/dL (0.6-1.2); GFR AFRICAN-AMERICAN > 60.0 ml/min (>90); GFR NON AFRICAN-AMERICAN > 60.0 ml/min; LIPASE 22 U/L (11-82); MAGNESIUM 1.9 mg/dL (1.9-2.7); POTASSIUM SERUM 3.5 mEq/L (3.5-5.1); SGOT 16 U/L (13-39); SGPT/ALT 12 U/L (7-52); SODIUM SERUM 136 mEq/L (136-145); TOTAL PROTEIN,SERUM 6.4 gm/dL (6.0-8.3)
[2018-01-13 05:54] LABS: BAND NEUTROPHILE 5 % (0-10); LYMPHOCYTE 7 % (20-50); MONOCYTE 3 % (2-10); NEUTROPHILS 85 % (40-80)
[2018-01-13 05:55] LABS: ANISOCYTOSIS 1+; GLUCOSE 137 mg/dL (70-105)
[2018-01-13] MEDS: D5-0.45NS 1,000 ML IV SCH (06:58)
--- NOTE | 2018-01-13 10:51 | Diagnostic Imaging Report ---
Exam: HIDA scan. HISTORY: Cholecystitis. Findings: Utilizing 5 mCi of technetium 99 M Choletec examination of liver and biliary G was obtained. The study demonstrates normal uptake of the right radiopharmaceutical throughout the liver parenchyma. The gallbladder and common bile duct are normal. Normal excretion of the radiopharmaceutical into small bowel appreciated. IMPRESSION: Normal HIDA scan
[2018-01-13] MEDS: Morphine Sulfate 2 mg/mL 1mL Syr IVP PRN ×2 (13:28→22:11)
[2018-01-13] MEDS: D5-0.45NS w/10 mEq KCL 1,000 ML IV SCH (14:28)
[2018-01-13] MEDS ORDERED: Probiotic Screen MC PRN (14:35)
--- NOTE | 2018-01-13 16:29 | GI Progress Note ---
Subjective - Review of Systems Service Date: 01/13/18 Events since last encounter: No events Subjective: Better except for headaches Objective - Results Result Diagrams: 01/13/18 04:55 01/13/18 04:55 Recent Labs: Laboratory Last Values WBC 16.3 Th/cmm (4.8-10.8) H 01/13/18 04:55 RBC 3.42 Mil/cmm (3.80-5.10) L 01/13/18 04:55 Hgb 8.9 gm/dL (12-16) L 01/13/18 04:55 Hct 27.0 % (41.0-60) L 01/13/18 04:55 MCV 78.8 fl (81-100) L 01/13/18 04:55 MCH 26.0 pg (27.0-31.0) L 01/13/18 04:55 MCHC Differential 32.9 pg (28.0-36.0) 01/13/18 04:55 RDW 16.8 % (11.5-20.0) 01/13/18 04:55 Plt Count 132 Th/cmm (150-400) L 01/13/18 04:55 MPV 10.6 fl 01/13/18 04:55 Add Manual Diff YES 01/12/18 05:00 Neutrophils % 87.2 % (40.0-80.0) H 01/13/18 04:55 Band Neutrophils % 5 % (0-10) 01/13/18 04:55 Lymphocytes % 6.1 % (20.0-50.0) L 01/13/18 04:55 Monocytes % 6.0 % (2.0-10.0) 01/13/18 04:55 Eosinophils % 0.5 % (0.0-5.0) 01/13/18 04:55 Basophils % 0.2 % (0.0-2.0) 01/13/18 04:55 Neutrophils (Manual) 85 % (40-80) H 01/13/18 04:55 Lymphocytes 7 % (20-50) L 01/13/18 04:55 Monocytes 3 % (2-10) 01/13/18 04:55 Anisocytosis 1+ 01/13/18 04:55 Microcytosis 1+ 01/13/18 04:55 ESR 57 mm/hr (0-30) H 01/11/18 17:25 PT 10.6 SECONDS (9.5-11.5) 01/11/18 17:25 INR 1.02 (0.5-1.4) 01/11/18 17:25 PTT (Actin FS) 31.9 SECONDS (26.0-38.0) 01/11/18 17:25 Fibrinogen 255.0 mg/dL (200.0-400.0) 01/12/18 05:00 D-Dimer 3890 ng/mL (100-400) H 01/11/18 19:55 Sodium 136 mEq/L (136-145) 01/13/18 04:55 Potassium 3.5 mEq/L (3.5-5.1) 01/13/18 04:55 Chloride 106 mEq/L (98-107) 01/13/18 04:55 Carbon Dioxide 22.7 mEq/L (21.0-31.0) 01/13/18 04:55 Anion Gap 10.8 (7.0-16.0) 01/13/18 04:55 BUN 7 mg/dL (7-25) 01/13/18 04:55 Creatinine 0.7 mg/dL (0.6-1.2) 01/13/18 04:55 Est GFR ( Amer) > 60.0 ml/min (>90) 01/13/18 04:55 Est GFR (Non-Af Amer) > 60.0 ml/min 01/13/18 04:55 BUN/Creatinine Ratio 10.0 01/13/18 04:55 Glucose 137 mg/dL (70-105) H D 01/13/18 04:55 POC Glucose 99 MG/DL (70 - 105) 01/11/18 20:48 Whole Bld Lactic Acid 1.59 mmol/L (0.60-1.99) 01/11/18 17:25 Calcium 8.7 mg/dL (8.6-10.3) 01/13/18 04:55 Phosphorus 2.7 mg/dL (2.5-5.0) 01/11/18 17:25 Magnesium 1.9 mg/dL (1.9-2.7) 01/13/18 04:55 Total Bilirubin 0.6 mg/dL (0.3-1.0) 01/13/18 04:55 Direct Bilirubin 0.24 mg/dL (0.0-0.2) H 01/13/18 04:55 AST 16 U/L (13-39) 01/13/18 04:55 ALT 12 U/L (7-52) 01/13/18 04:55 Alkaline Phosphatase 70 U/L (34-104) 01/13/18 04:55 Creatine Kinase 111 U/L (30-223) 01/11/18 17:25 Total Protein 6.4 gm/dL (6.0-8.3) 01/13/18 04:55 Albumin 2.6 gm/dL (3.7-5.3) L 01/13/18 04:55 Globulin 3.8 gm/dL 01/13/18 04:55 Albumin/Globulin Ratio 0.7 (1.0-1.8) L 01/13/18 04:55 Amylase 22 U/L (29-103) L 01/11/18 17:25 Lipase 22 U/L (11-82) 01/13/18 04:55 Urine Source CLEAN C 01/11/18 17:15 Urine Color YELLOW 01/11/18 17:15 Urine Clarity CLEAR (CLEAR) 01/11/18 17:15 Urine pH 6.0 (4.6 - 8.0) 01/11/18 17:15 Ur Specific [place] 1.025 (1.005-1.030) 01/11/18 17:15 Urine Protein 100 mg/dL (NEGATIVE) H 01/11/18 17:15 Urine Glucose (UA) NEGATIVE mg/dL (NEGATIVE) 01/11/18 17:15 Urine Ketones 15 mg/dL (NEGATIVE) H 01/11/18 17:15 Urine Blood NEGATIVE (NEGATIVE) 01/11/18 17:15 Urine Nitrate NEGATIVE (NEGATIVE) 01/11/18 17:15 Urine Bilirubin MODERATE (NEGATIVE) H 01/11/18 17:15 Urine Ictotest Not Reportable 01/11/18 17:15 Urine Urobilinogen 1.0 E.U./dL (0.2 - 1.0) 01/11/18 17:15 Ur Leukocyte Esterase NEGATIVE (NEGATIVE) 01/11/18 17:15 Urine RBC 2-5 /hpf (0-5) 01/11/18 17:15 Urine WBC 0-2 /hpf (0-5) 01/11/18 17:15 Ur Epithelial Cells FEW /lpf (FEW) 01/11/18 17:15 Urine Bacteria 2+ /hpf (NONE SEEN) H 01/11/18 17:15 Urine Mucus FEW /lpf (FEW) 01/11/18 17:15 Urine Opiates Screen POSITIVE (NEGATIVE) H 01/11/18 17:15 Urine Methadone Screen NEGATIVE (NEGATIVE) 01/11/18 17:15 Ur Barbiturates Screen NEGATIVE (NEGATIVE) 01/11/18 17:15 Ur Tricyclics Screen NEGATIVE (NEGATIVE) 01/11/18 17:15 Ur Phencyclidine Scrn NEGATIVE (NEGATIVE) 01/11/18 17:15 Amphetamines Screen NEGATIVE (NEGATIVE) 01/11/18 17:15 U Methamphetamines Scrn NEGATIVE (NEGATIVE) 01/11/18 17:15 U Benzodiazepines Scrn NEGATIVE (NEGATIVE) 01/11/18 17:15 U Cocaine Metab Screen NEGATIVE (NEGATIVE) 01/11/18 17:15 U Cannabinoids Screen NEGATIVE (NEGATIVE) 01/11/18 17:15 Hepatitis A IgM Ab Negative (Negative) 01/11/18 17:25 Hep Bs Antigen Negative (Negative) 01/11/18 17:25 Hep B Core IgM Ab Negative (Negative) 01/11/18 17:25 Hepatitis C Antibody 0.1 s/co ratio (0.0-0.9) 01/11/18 17:25 - Physical Exam Vitals and I&O: Vital Signs Temp 98.1 F 01/13/18 13:00 Pulse 87 01/13/18 15:00 Resp 23 01/13/18 15:00 BP 109/57 01/13/18 15:00 Pulse Ox 99 01/13/18 08:00 Intake & Output 01/12/18 01/13/18 01/13/18 18:59 06:59 18:59 Intake Total 2560 1300 200 Output Total 650 Balance 1910 1300 200 Weight (lbs) 110.223 kg 110.223 kg Intake: Intake, IV Amount 2200 1250 200 D5-0.45NS 1,000 ml @ 150 2000 1000 mls/hr IV .Q6H40M [facility] Rx# :[id number] Piperacillin Sodium/ 100 50 100 Tazobact 3.375 gm In Sodium Chloride 0.9% 50 ml @ 100 mls/hr IV Q6HR [facility] Rx#:[id number] metroNIDAZOLE 500mg/NS 100 200 100 100mL 500 mg In 100 ml @ 100 mls/hr IV Q8HR [facility] Rx #:[id number] Oral 360 50 Output: Urine 650 Other: # Voids 2 2 # Bowel Movements 0 2 Stool Characteristics Liquid Mucoid Mucoid Brown Black Black Green Green Weight Source Bedscale Bedscale Active Medications: Current Medications Metronidazole (Flagyl) 500 mg in 100 mls @ 100 mls/hr IV Q8HR [facility] Stop: 03/13/18 04:59 Last Infusion: 01/13/18 13:18 Dose: Infused Piperacillin Sod/Tazobactam (Sod 3.375 gm/ Sodium Chloride) 50 mls @ 100 mls/ hr IV Q6HR [facility]; Protocol Stop: 03/13/18 00:00 Last Infusion: 01/13/18 12:48 Dose: Infused Potassium Chloride/Dextrose/Sod Cl (D5-0.45ns W/10 Meq Kcl) 1,000 mls @ 100 mls /hr IV .Q10H [facility] Stop: 03/14/18 13:59 Last Admin: 01/13/18 14:28 Dose: 100 mls/hr Lactobacillus Rhamnosus (Culturelle 15b) 1 each PO DAILY [facility] Stop: 03/14/18 14:59 Miscellaneous (Probiotic Screen) 1 ea MC PRN PRN PRN Reason: PROTOCOL Stop: 03/14/18 14:34 Morphine Sulfate (Morphine) 1 mg IVP Q3H PRN PRN Reason: Severe Pain Stop: 03/12/18 22:27 Last Admin: 01/13/18 13:28 Dose: 1 mg Ondansetron HCl (Zofran) 4 mg IV Q4HR PRN PRN Reason: nausea/vomit Stop: 03/12/18 19:54 Pantoprazole Sodium (Protonix) 40 mg IVP QDAC [facility] Stop: 03/13/18 07:29 Last Admin: 01/13/18 06:50 Dose: 40 mg General: Alert, Oriented x3, No acute distress Cardiovascular: Regular rate, Normal S1, Normal S2 Lungs: Clear to auscultation Abdomen: Bowel sounds, Soft, no Tender, no Hepatomegaly, no Splenomegaly, no Distended, no Rebound, no Mass, no Guarding, no Drain, no Obese, no Catheter, no Other Assessment/Plan - Problem List Patient Problems: All Active Problems FEVER WITH DIZZINESS AND HEADACHE (Acute) - Assessment Assessment: Abdominal pain Anemia - Plan Plan: 1.Abdominal pain Resolved. Negative W/U Continue current management) 2.Anemia W/U in progress
[2018-01-13] MEDS: Lactobacillus Rhamnosus GG 15 Billion CFU CAP.SPRINK PO SCH (17:25)
--- NOTE | 2018-01-13 19:14 | Consultation ---
DATE OF CONSULTATION: 01/12/2018 REASON FOR CONSULTATION: Abdominal pain. HISTORY OF PRESENT ILLNESS: This consult was obtained through the courtesy of Dr. Viveros for this 42-year-old with a history of obesity, status post gastric sleeve surgery, presenting to the hospital because of fever and shaking for about a week. When the fever persisted, she came to the hospital, was admitted, and a GI consult was called in for further evaluation. The patient denies abdominal pain in the beginning. She has some loose bowel movement. No nausea, no bleeding. She had lost some weight, but she did not realize it. PAST MEDICAL HISTORY: Negative. PAST SURGICAL HISTORY: Gastric sleeve. SOCIAL HISTORY: Denies smoking. Drinks alcohol on infrequent occasions. Denies IV, nasal, or recreational drug use. FAMILY HISTORY: Noncontributory. ALLERGIES: No known drug allergies. MEDICATIONS: None. REVIEW OF SYSTEMS: A few pounds of weight loss. She has fever. She has diarrhea. PHYSICAL EXAMINATION: GENERAL: The patient is awake, oriented to self, place, and time, in mild distress. VITAL SIGNS: Blood pressure is 122/77, heart rate 91, respiratory rate 22, temperature 97.9. T-max 102.2. HEAD AND NECK: Pupils reactive to light and accommodation. Extraocular muscles intact. Sclerae are anicteric. Conjunctivae not pale. Oral cavity, no lesion. NECK: Supple. CHEST: Good air entry. LUNGS: Clear to auscultation. CARDIOVASCULAR: Regular rate and rhythm. No murmur or gallop. ABDOMEN: Soft, obese, positive bowel sounds. Positive epigastric and right upper quadrant tenderness. Minimal left lower quadrant tenderness. EXTREMITIES: Lower extremities, no edema. CENTRAL NERVOUS SYSTEM: Grossly nonfocal. LABORATORY DATA: White count 18.6, H and H are 8.4 and 25.2 with platelets of 101. Neutrophils 90%, MCV is 78.8 and RDW is 16.4. PT is normal. Chemistry showed albumin of 2.4, normal bilirubin, AST, ALT, alkaline phosphatase. Her urine was positive for opiates. X-ray, CAT scan, ultrasound showed enlarged uterus with fibroid and it was poorly limited study. IMPRESSION: A 42-year-old presenting with fever and abdominal pain. Rule out cholecystitis versus colitis versus enteritis. RECOMMENDATIONS: 1. The patient already scheduled for HIDA scan. We will await results. We will recheck labs in the morning, including liver function tests and lipase. 2. Await cultures and continue his antibiotics. 3. If symptoms persist, consider endoscopy or colonoscopy, especially with any, even though it might be sickle cell or some other thing. Further plans, as per Dr. Viveros. Thank you Dr. Viveros, for allowing me to participate in the care of the patient. If you have any further questions, please let me know. JOB# [id number]
[2018-01-14] MEDS: D5-0.45NS w/10 mEq KCL 1,000 ML IV SCH ×2 (02:00→11:31)
[2018-01-14 05:30] LABS: % BASOPHILS 0.8 % (0.0-2.0); % EOSINOPHILS 0.5 % (0.0-5.0); % LYMPHOCYTES 9.2 % (20.0-50.0); % MONOCYTES 6.7 % (2.0-10.0); % NEUTROPHILS 82.8 % (40.0-80.0); BASOPHILE ABSOLUTE 0.1 Th/cumm (0-0.2); EOSINOPHILE ABSOLUTE 0.1 Th/cmm (0.1-0.4); HEMATOCRIT 25.7 % (41.0-60); HEMOGLOBIN 8.6 gm/dL (12-16); LYMPHOCYTE ABSOLUTE 0.9 Th/cmm (1.5-3.0); MEAN CELL VOLUME 79.3 fl (81-100); MEAN CORPUSCULAR HEMOGLOBIN 26.4 pg (27.0-31.0); MEAN CORPUSCULAR HGB CONC 33.2 pg (28.0-36.0); MONOCYTE ABSOLUTE 0.7 Th/cmm (0.3-1.0); NEUTROPHILE ABSOLUTE 8.4 Th/cmm (1.8-8.0); PLATELET COUNT 183 Th/cmm (150-400); RED BLOOD COUNT 3.24 Mil/cmm (3.80-5.10); RED CELL DISTRIBUTION WIDTH 17.2 % (11.5-20.0); WHITE BLOOD COUNT 10.2 Th/cmm (4.8-10.8)
[2018-01-14 05:53] LABS: ALB/GLOB RATIO 0.7 (1.0-1.8); ALBUMIN 2.6 gm/dL (3.7-5.3); ALKALINE PHOSPHATASE 66 U/L (34-104); ANION GAP 9.7 (7.0-16.0); BILIRUBIN,TOTAL 0.7 mg/dL (0.3-1.0); BUN - UREA NITROGEN 5 mg/dL (7-25); CALCIUM SERUM 8.8 mg/dL (8.6-10.3); CARBON DIOXIDE 25.8 mEq/L (21.0-31.0); CHLORIDE 106 mEq/L (98-107); CREATININE - SERUM 0.6 mg/dL (0.6-1.2); GFR AFRICAN-AMERICAN > 60.0 ml/min (>90); GFR NON AFRICAN-AMERICAN > 60.0 ml/min; GLUCOSE 119 mg/dL (70-105); POTASSIUM SERUM 3.5 mEq/L (3.5-5.1); SGOT 12 U/L (13-39); SGPT/ALT 10 U/L (7-52); SODIUM SERUM 138 mEq/L (136-145); TOTAL PROTEIN,SERUM 6.5 gm/dL (6.0-8.3)
[2018-01-14 06:12] LABS: CHOLESTEROL 84 mg/dL (<200); HDL -HIGH DENSITY LIPOPROTEIN 11 mg/dL (23-92); TRIGLYCERIDES 108 mg/dL (<150)
[2018-01-14] MEDS: Lactobacillus Rhamnosus GG 15 Billion CFU CAP.SPRINK PO SCH (08:24)
[2018-01-14] MEDS: Morphine Sulfate 2 mg/mL 1mL Syr IVP PRN ×2 (10:12→23:15)
--- NOTE | 2018-01-14 12:50 | Infectious Disease Prog Note ---
Infectious Disease Subjective - Review of Systems Service Date: 01/14/18 Subjective: There is no new change, no fever. Infectious Disease Objective - Results Result Diagrams: 01/14/18 05:15 01/14/18 05:15 Recent Labs: Laboratory Last Values WBC 10.2 Th/cmm (4.8-10.8) 01/14/18 05:15 RBC 3.24 Mil/cmm (3.80-5.10) L 01/14/18 05:15 Hgb 8.6 gm/dL (12-16) L 01/14/18 05:15 Hct 25.7 % (41.0-60) L 01/14/18 05:15 MCV 79.3 fl (81-100) L 01/14/18 05:15 MCH 26.4 pg (27.0-31.0) L 01/14/18 05:15 MCHC Differential 33.2 pg (28.0-36.0) 01/14/18 05:15 RDW 17.2 % (11.5-20.0) 01/14/18 05:15 Plt Count 183 Th/cmm (150-400) 01/14/18 05:15 MPV 10.0 fl 01/14/18 05:15 Add Manual Diff YES 01/12/18 05:00 Neutrophils % 82.8 % (40.0-80.0) H 01/14/18 05:15 Band Neutrophils % 5 % (0-10) 01/13/18 04:55 Lymphocytes % 9.2 % (20.0-50.0) L 01/14/18 05:15 Monocytes % 6.7 % (2.0-10.0) 01/14/18 05:15 Eosinophils % 0.5 % (0.0-5.0) 01/14/18 05:15 Basophils % 0.8 % (0.0-2.0) 01/14/18 05:15 Neutrophils (Manual) 85 % (40-80) H 01/13/18 04:55 Lymphocytes 7 % (20-50) L 01/13/18 04:55 Monocytes 3 % (2-10) 01/13/18 04:55 Anisocytosis 1+ 01/13/18 04:55 Microcytosis 1+ 01/13/18 04:55 ESR 57 mm/hr (0-30) H 01/11/18 17:25 PT 10.6 SECONDS (9.5-11.5) 01/11/18 17:25 INR 1.02 (0.5-1.4) 01/11/18 17:25 PTT (Actin FS) 31.9 SECONDS (26.0-38.0) 01/11/18 17:25 Fibrinogen 255.0 mg/dL (200.0-400.0) 01/12/18 05:00 D-Dimer 3890 ng/mL (100-400) H 01/11/18 19:55 Sodium 138 mEq/L (136-145) 01/14/18 05:15 Potassium 3.5 mEq/L (3.5-5.1) 01/14/18 05:15 Chloride 106 mEq/L (98-107) 01/14/18 05:15 Carbon Dioxide 25.8 mEq/L (21.0-31.0) 01/14/18 05:15 Anion Gap 9.7 (7.0-16.0) 01/14/18 05:15 BUN 5 mg/dL (7-25) L 01/14/18 05:15 Creatinine 0.6 mg/dL (0.6-1.2) 01/14/18 05:15 Est GFR ( Amer) > 60.0 ml/min (>90) 01/14/18 05:15 Est GFR (Non-Af Amer) > 60.0 ml/min 01/14/18 05:15 BUN/Creatinine Ratio 8.3 01/14/18 05:15 Glucose 119 mg/dL (70-105) H 01/14/18 05:15 POC Glucose 99 MG/DL (70 - 105) 01/11/18 20:48 Whole Bld Lactic Acid 1.59 mmol/L (0.60-1.99) 01/11/18 17:25 Calcium 8.8 mg/dL (8.6-10.3) 01/14/18 05:15 Phosphorus 2.7 mg/dL (2.5-5.0) 01/11/18 17:25 Magnesium 1.9 mg/dL (1.9-2.7) 01/13/18 04:55 Total Bilirubin 0.7 mg/dL (0.3-1.0) 01/14/18 05:15 Direct Bilirubin 0.24 mg/dL (0.0-0.2) H 01/13/18 04:55 AST 12 U/L (13-39) L 01/14/18 05:15 ALT 10 U/L (7-52) 01/14/18 05:15 Alkaline Phosphatase 66 U/L (34-104) 01/14/18 05:15 Creatine Kinase 111 U/L (30-223) 01/11/18 17:25 Total Protein 6.5 gm/dL (6.0-8.3) 01/14/18 05:15 Albumin 2.6 gm/dL (3.7-5.3) L 01/14/18 05:15 Globulin 3.9 gm/dL 01/14/18 05:15 Albumin/Globulin Ratio 0.7 (1.0-1.8) L 01/14/18 05:15 Triglycerides 108 mg/dL (<150) 01/14/18 05:15 Cholesterol 84 mg/dL (<200) 01/14/18 05:15 LDL Cholesterol Direct 51 mg/dL (75-193) L 01/14/18 05:15 HDL Cholesterol 11 mg/dL (23-92) L 01/14/18 05:15 Amylase 22 U/L (29-103) L 01/11/18 17:25 Lipase 22 U/L (11-82) 01/13/18 04:55 TSH 1.84 uIU/ml (0.34-5.60) 01/14/18 05:15 Urine Source CLEAN C 01/11/18 17:15 Urine Color YELLOW 01/11/18 17:15 Urine Clarity CLEAR (CLEAR) 01/11/18 17:15 Urine pH 6.0 (4.6 - 8.0) 01/11/18 17:15 Ur Specific [place] 1.025 (1.005-1.030) 01/11/18 17:15 Urine Protein 100 mg/dL (NEGATIVE) H 01/11/18 17:15 Urine Glucose (UA) NEGATIVE mg/dL (NEGATIVE) 01/11/18 17:15 Urine Ketones 15 mg/dL (NEGATIVE) H 01/11/18 17:15 Urine Blood NEGATIVE (NEGATIVE) 01/11/18 17:15 Urine Nitrate NEGATIVE (NEGATIVE) 01/11/18 17:15 Urine Bilirubin MODERATE (NEGATIVE) H 01/11/18 17:15 Urine Ictotest Not Reportable 01/11/18 17:15 Urine Urobilinogen 1.0 E.U./dL (0.2 - 1.0) 01/11/18 17:15 Ur Leukocyte Esterase NEGATIVE (NEGATIVE) 01/11/18 17:15 Urine RBC 2-5 /hpf (0-5) 01/11/18 17:15 Urine WBC 0-2 /hpf (0-5) 01/11/18 17:15 Ur Epithelial Cells FEW /lpf (FEW) 01/11/18 17:15 Urine Bacteria 2+ /hpf (NONE SEEN) H 01/11/18 17:15 Urine Mucus FEW /lpf (FEW) 01/11/18 17:15 Urine Opiates Screen POSITIVE (NEGATIVE) H 01/11/18 17:15 Urine Methadone Screen NEGATIVE (NEGATIVE) 01/11/18 17:15 Ur Barbiturates Screen NEGATIVE (NEGATIVE) 01/11/18 17:15 Ur Tricyclics Screen NEGATIVE (NEGATIVE) 01/11/18 17:15 Ur Phencyclidine Scrn NEGATIVE (NEGATIVE) 01/11/18 17:15 Amphetamines Screen NEGATIVE (NEGATIVE) 01/11/18 17:15 U Methamphetamines Scrn NEGATIVE (NEGATIVE) 01/11/18 17:15 U Benzodiazepines Scrn NEGATIVE (NEGATIVE) 01/11/18 17:15 U Cocaine Metab Screen NEGATIVE (NEGATIVE) 01/11/18 17:15 U Cannabinoids Screen NEGATIVE (NEGATIVE) 01/11/18 17:15 Hepatitis A IgM Ab Negative (Negative) 01/11/18 17:25 Hep Bs Antigen Negative (Negative) 01/11/18 17:25 Hep B Core IgM Ab Negative (Negative) 01/11/18 17:25 Hepatitis C Antibody 0.1 s/co ratio (0.0-0.9) 01/11/18 17:25 - Physical Exam Vitals and I&O: Vital Signs Temp 98.8 F 01/14/18 08:00 Pulse 89 01/14/18 08:00 Resp 22 01/14/18 08:00 BP 105/57 01/14/18 08:00 Pulse Ox 100 01/14/18 08:00 Intake & Output 01/13/18 01/14/18 01/14/18 18:59 06:59 18:59 Intake Total 700 2000 551.667 Output Total 900 1000 Balance -200 1000 551.667 Weight (lbs) 110.223 kg 108.409 kg Intake: Intake, IV Amount 250 1600 551.667 D5-0.45NS w/10 mEq KCL 1, 1400 551.667 000 ml @ 100 mls/hr IV . Q10H [facility] Rx#:[id number] Piperacillin Sodium/ 150 100 Tazobact 3.375 gm In Sodium Chloride 0.9% 50 ml @ 100 mls/hr IV Q6HR [facility] Rx#:[id number] metroNIDAZOLE 500mg/NS 100 100 100mL 500 mg In 100 ml @ 100 mls/hr IV Q8HR [facility] Rx #:[id number] Oral 450 400 Output: Urine 900 1000 Other: # Bowel Movements 1 0 Stool Characteristics Mucoid Black Green Weight Source Bedscale Bedscale Active Medications: Current Medications Acetaminophen (Tylenol) 650 mg PO Q4H PRN PRN Reason: Fever above 100F Stop: 03/15/18 11:13 Last Admin: 01/14/18 11:27 Dose: 650 mg Piperacillin Sod/Tazobactam (Sod 3.375 gm/ Sodium Chloride) 50 mls @ 100 mls/ hr IV Q6HR [facility]SE; Protocol Stop: 03/13/18 00:00 Last Admin: 01/14/18 11:28 Dose: 100 mls/hr Potassium Chloride/Dextrose/Sod Cl (D5-0.45ns W/10 Meq Kcl) 1,000 mls @ 100 mls /hr IV .Q10H [facility] Stop: 03/14/18 13:59 Last Admin: 01/14/18 11:31 Dose: 100 mls/hr Lactobacillus Rhamnosus (Culturelle 15b) 1 each PO DAILY [facility] Stop: 03/14/18 14:59 Last Admin: 01/14/18 08:24 Dose: 1 each Lorazepam (Ativan) 1 mg IVP Q4HR PRN; Protocol PRN Reason: tremors Stop: 03/15/18 11:15 Miscellaneous (Probiotic Screen) 1 ea MC PRN PRN PRN Reason: PROTOCOL Stop: 03/14/18 14:34 Morphine Sulfate (Morphine) 1 mg IVP Q3H PRN PRN Reason: Severe Pain Stop: 03/12/18 22:27 Last Admin: 01/14/18 10:12 Dose: 1 mg Ondansetron HCl (Zofran) 4 mg IV Q4HR PRN PRN Reason: nausea/vomit Stop: 03/12/18 19:54 Pantoprazole Sodium (Protonix) 40 mg IVP QDAC [facility] Stop: 03/13/18 07:29 Last Admin: 01/14/18 07:19 Dose: 40 mg General: no acute distress, well developed, well nourished HEENT: atraumatic, normocephalic, PERRLA Neck: supple, no thyromegaly Cardiovascular: S1S2, regular Lungs: clear to auscultation bilaterally, clear to percussion Abdomen: soft, no tender, no distended Extremities: no cyanosis, no clubbing, no edema Neurological: awake, alert, oriented Skin: intact Infectious Disease Assmt/Plan - Problem List Patient Problems: All Active Problems FEVER WITH DIZZINESS AND HEADACHE (Acute) - Assessment Assessment: 1. Septic shock. 2. Abdominal pain with wide differential includes, Gastroenteritis, Essure infection and others. Not limited to the above mentioned. 3. H/o Gastric bypass. - Plan Plan: Will change antibiotics to rocephin. Follow up repeat blood cultures. check echo report. Nutritional Asmnt/Malnutr-PDOC - Dietary Evaluation Malnutrition Findings (Please click <Entered> for more info): Nutritional Asmnt/Malnutrition Start: 01/12/18 10: 51 Text: Status: Complete Freq: Protocol: Document 01/12/18 10:52 JAQUAN (Rec: 01/12/18 11:07 MMOK ELIZABETH- FNS1) Nutritional Asmnt/Malnutrition Patient General Information Nutritional Screening High Risk Diagnosis Sepsis, rule out cholecystitis Pertinent Medical Hx/Surgical Hx Gastric sleeve (no H&P yet) Subjective Information Per nursing notes, patient with history of gastric sleeve . Patient resting in room with family at time of visit. Tolerating current diet without difficulty Current Diet Order/ Nutrition Support Regular Patient / S.O Not Indicated Pertinent Medications D5-0.45 NS @150 ml/hr, flagyl, Zofran, protonix Pertinent Labs (01/12) Na 134, K 3.3, Glucose 214, Calcium 8, Mg 1.8, Albumin 2.4 Nutritional Hx/Data Height 1.6 m Height (Calculated Centimeters) 160.0 Current Weight (lbs) 110.223 kg Weight (Calculated Kilograms) 110.2 Weight (Calculated Grams) 722148.9 [place] Body Weight 115 % [place] Body Weight 211 Body Mass Index (BMI) 43.0 Recent Weight Change No Weight Status Morbidly Obese GI Symptoms GI Symptoms None Last BM Diarrhea 01/12 Difficult in: None Food Allergies No Cultural/Ethnic/Yarsanism Belief None indicated Usual diet at home Unknown Skin Integrity/Comment: Kyle 21, Intact Estimated Nutritional Goals BEE in Kcals: Adj wt of IBW Calories/Kcals/Kg 25-30 kcal/kg Using Adj wt 66. 8kg Kcals Calculated 8377-9567 kcal/day Protein: Adj wt of IBW Protein g/k-1.2 gm/kg Protein Calculated 65-80 gm/day Fluid: ml 7039-7393 ml/daY Nutritional Problem 2. Problem Problem Altered nutrition related lab values related to Etiology electrolyte imbalance and hyperglycemia aeb Signs/Symptoms: Na 134, K 3.3, Glucose 214, Calcium 8, Mg 1.8, Albumin 2.4 1. Problem Problem Malnutrition related to Etiology possible excessive intake aeb Signs/Symptoms: BMI 43.1 Intervention/Recommendation Comments 1. Continue regular diet as tolerated by patient 2. MD to replace lytes as necessary. 3. If glucose remains elevated , consider modifying to 60 gm CCHO diet. Expected Outcomes/Goals Expected Outcomes/Goals Oral intake >75% of meals, weight trend toward IBW, nutrition related labs normalize F/U MR 01/15-
--- NOTE | 2018-01-14 15:36 | Infectious Disease Prog Note ---
Infectious Disease Subjective - Review of Systems Service Date: 01/14/18 Subjective: There is no new change, no fever. c/o pain in right ankle. Infectious Disease Objective - Results Result Diagrams: 01/14/18 05:15 01/14/18 05:15 Recent Labs: Laboratory Last Values WBC 10.2 Th/cmm (4.8-10.8) 01/14/18 05:15 RBC 3.24 Mil/cmm (3.80-5.10) L 01/14/18 05:15 Hgb 8.6 gm/dL (12-16) L 01/14/18 05:15 Hct 25.7 % (41.0-60) L 01/14/18 05:15 MCV 79.3 fl (81-100) L 01/14/18 05:15 MCH 26.4 pg (27.0-31.0) L 01/14/18 05:15 MCHC Differential 33.2 pg (28.0-36.0) 01/14/18 05:15 RDW 17.2 % (11.5-20.0) 01/14/18 05:15 Plt Count 183 Th/cmm (150-400) 01/14/18 05:15 MPV 10.0 fl 01/14/18 05:15 Add Manual Diff YES 01/12/18 05:00 Neutrophils % 82.8 % (40.0-80.0) H 01/14/18 05:15 Band Neutrophils % 5 % (0-10) 01/13/18 04:55 Lymphocytes % 9.2 % (20.0-50.0) L 01/14/18 05:15 Monocytes % 6.7 % (2.0-10.0) 01/14/18 05:15 Eosinophils % 0.5 % (0.0-5.0) 01/14/18 05:15 Basophils % 0.8 % (0.0-2.0) 01/14/18 05:15 Neutrophils (Manual) 85 % (40-80) H 01/13/18 04:55 Lymphocytes 7 % (20-50) L 01/13/18 04:55 Monocytes 3 % (2-10) 01/13/18 04:55 Anisocytosis 1+ 01/13/18 04:55 Microcytosis 1+ 01/13/18 04:55 ESR 57 mm/hr (0-30) H 01/11/18 17:25 PT 10.6 SECONDS (9.5-11.5) 01/11/18 17:25 INR 1.02 (0.5-1.4) 01/11/18 17:25 PTT (Actin FS) 31.9 SECONDS (26.0-38.0) 01/11/18 17:25 Fibrinogen 255.0 mg/dL (200.0-400.0) 01/12/18 05:00 D-Dimer 3890 ng/mL (100-400) H 01/11/18 19:55 Sodium 138 mEq/L (136-145) 01/14/18 05:15 Potassium 3.5 mEq/L (3.5-5.1) 01/14/18 05:15 Chloride 106 mEq/L (98-107) 01/14/18 05:15 Carbon Dioxide 25.8 mEq/L (21.0-31.0) 01/14/18 05:15 Anion Gap 9.7 (7.0-16.0) 01/14/18 05:15 BUN 5 mg/dL (7-25) L 01/14/18 05:15 Creatinine 0.6 mg/dL (0.6-1.2) 01/14/18 05:15 Est GFR ( Amer) > 60.0 ml/min (>90) 01/14/18 05:15 Est GFR (Non-Af Amer) > 60.0 ml/min 01/14/18 05:15 BUN/Creatinine Ratio 8.3 01/14/18 05:15 Glucose 119 mg/dL (70-105) H 01/14/18 05:15 POC Glucose 99 MG/DL (70 - 105) 01/11/18 20:48 Whole Bld Lactic Acid 1.59 mmol/L (0.60-1.99) 01/11/18 17:25 Calcium 8.8 mg/dL (8.6-10.3) 01/14/18 05:15 Phosphorus 2.7 mg/dL (2.5-5.0) 01/11/18 17:25 Magnesium 1.9 mg/dL (1.9-2.7) 01/13/18 04:55 Total Bilirubin 0.7 mg/dL (0.3-1.0) 01/14/18 05:15 Direct Bilirubin 0.24 mg/dL (0.0-0.2) H 01/13/18 04:55 AST 12 U/L (13-39) L 01/14/18 05:15 ALT 10 U/L (7-52) 01/14/18 05:15 Alkaline Phosphatase 66 U/L (34-104) 01/14/18 05:15 Creatine Kinase 111 U/L (30-223) 01/11/18 17:25 Total Protein 6.5 gm/dL (6.0-8.3) 01/14/18 05:15 Albumin 2.6 gm/dL (3.7-5.3) L 01/14/18 05:15 Globulin 3.9 gm/dL 01/14/18 05:15 Albumin/Globulin Ratio 0.7 (1.0-1.8) L 01/14/18 05:15 Triglycerides 108 mg/dL (<150) 01/14/18 05:15 Cholesterol 84 mg/dL (<200) 01/14/18 05:15 LDL Cholesterol Direct 51 mg/dL (75-193) L 01/14/18 05:15 HDL Cholesterol 11 mg/dL (23-92) L 01/14/18 05:15 Amylase 22 U/L (29-103) L 01/11/18 17:25 Lipase 22 U/L (11-82) 01/13/18 04:55 TSH 1.84 uIU/ml (0.34-5.60) 01/14/18 05:15 Urine Source CLEAN C 01/11/18 17:15 Urine Color YELLOW 01/11/18 17:15 Urine Clarity CLEAR (CLEAR) 01/11/18 17:15 Urine pH 6.0 (4.6 - 8.0) 01/11/18 17:15 Ur Specific [place] 1.025 (1.005-1.030) 01/11/18 17:15 Urine Protein 100 mg/dL (NEGATIVE) H 01/11/18 17:15 Urine Glucose (UA) NEGATIVE mg/dL (NEGATIVE) 01/11/18 17:15 Urine Ketones 15 mg/dL (NEGATIVE) H 01/11/18 17:15 Urine Blood NEGATIVE (NEGATIVE) 01/11/18 17:15 Urine Nitrate NEGATIVE (NEGATIVE) 01/11/18 17:15 Urine Bilirubin MODERATE (NEGATIVE) H 01/11/18 17:15 Urine Ictotest Not Reportable 01/11/18 17:15 Urine Urobilinogen 1.0 E.U./dL (0.2 - 1.0) 01/11/18 17:15 Ur Leukocyte Esterase NEGATIVE (NEGATIVE) 01/11/18 17:15 Urine RBC 2-5 /hpf (0-5) 01/11/18 17:15 Urine WBC 0-2 /hpf (0-5) 01/11/18 17:15 Ur Epithelial Cells FEW /lpf (FEW) 01/11/18 17:15 Urine Bacteria 2+ /hpf (NONE SEEN) H 01/11/18 17:15 Urine Mucus FEW /lpf (FEW) 01/11/18 17:15 Urine Opiates Screen POSITIVE (NEGATIVE) H 01/11/18 17:15 Urine Methadone Screen NEGATIVE (NEGATIVE) 01/11/18 17:15 Ur Barbiturates Screen NEGATIVE (NEGATIVE) 01/11/18 17:15 Ur Tricyclics Screen NEGATIVE (NEGATIVE) 01/11/18 17:15 Ur Phencyclidine Scrn NEGATIVE (NEGATIVE) 01/11/18 17:15 Amphetamines Screen NEGATIVE (NEGATIVE) 01/11/18 17:15 U Methamphetamines Scrn NEGATIVE (NEGATIVE) 01/11/18 17:15 U Benzodiazepines Scrn NEGATIVE (NEGATIVE) 01/11/18 17:15 U Cocaine Metab Screen NEGATIVE (NEGATIVE) 01/11/18 17:15 U Cannabinoids Screen NEGATIVE (NEGATIVE) 01/11/18 17:15 Hepatitis A IgM Ab Negative (Negative) 01/11/18 17:25 Hep Bs Antigen Negative (Negative) 01/11/18 17:25 Hep B Core IgM Ab Negative (Negative) 01/11/18 17:25 Hepatitis C Antibody 0.1 s/co ratio (0.0-0.9) 01/11/18 17:25 - Physical Exam Vitals and I&O: Vital Signs Temp 99.4 F 01/14/18 12:00 Pulse 102 01/14/18 12:00 Resp 24 01/14/18 12:00 BP 115/53 01/14/18 12:00 Pulse Ox 100 01/14/18 12:00 Intake & Output 01/13/18 01/14/18 01/14/18 18:59 06:59 18:59 Intake Total 700 2000 551.667 Output Total 900 1000 Balance -200 1000 551.667 Weight (lbs) 110.223 kg 108.409 kg Intake: Intake, IV Amount 250 1600 551.667 D5-0.45NS w/10 mEq KCL 1, 1400 551.667 000 ml @ 100 mls/hr IV . Q10H [facility] Rx#:[id number] Piperacillin Sodium/ 150 100 Tazobact 3.375 gm In Sodium Chloride 0.9% 50 ml @ 100 mls/hr IV Q6HR [facility] Rx#:[id number] metroNIDAZOLE 500mg/NS 100 100 100mL 500 mg In 100 ml @ 100 mls/hr IV Q8HR [facility] Rx #:[id number] Oral 450 400 Output: Urine 900 1000 Other: # Bowel Movements 1 0 Stool Characteristics Mucoid Black Green Weight Source Bedscale Bedscale Active Medications: Current Medications Acetaminophen (Tylenol) 650 mg PO Q4H PRN PRN Reason: Fever above 100F Stop: 03/15/18 11:13 Last Admin: 01/14/18 11:27 Dose: 650 mg Potassium Chloride/Dextrose/Sod Cl (D5-0.45ns W/10 Meq Kcl) 1,000 mls @ 100 mls /hr IV .Q10H [facility] Stop: 03/14/18 13:59 Last Admin: 01/14/18 11:31 Dose: 100 mls/hr Ceftriaxone Sodium 2 gm/ (Dextrose) 100 mls @ 100 mls/hr IV Q24H [facility] Stop: 03/15/18 14:59 Lactobacillus Rhamnosus (Culturelle 15b) 1 each PO DAILY [facility] Stop: 03/14/18 14:59 Last Admin: 01/14/18 08:24 Dose: 1 each Lorazepam (Ativan) 1 mg IVP Q4HR PRN; Protocol PRN Reason: tremors Stop: 03/15/18 11:15 Miscellaneous (Probiotic Screen) 1 ea MC PRN PRN PRN Reason: PROTOCOL Stop: 03/14/18 14:34 Morphine Sulfate (Morphine) 1 mg IVP Q3H PRN PRN Reason: Severe Pain Stop: 03/12/18 22:27 Last Admin: 01/14/18 10:12 Dose: 1 mg Ondansetron HCl (Zofran) 4 mg IV Q4HR PRN PRN Reason: nausea/vomit Stop: 03/12/18 19:54 Pantoprazole Sodium (Protonix) 40 mg IVP QDAC [facility] Stop: 03/13/18 07:29 Last Admin: 01/14/18 07:19 Dose: 40 mg General: no acute distress, well developed, well nourished HEENT: atraumatic, normocephalic, PERRLA, EOMI, moist mucous membrane Neck: supple, no thyromegaly Cardiovascular: S1S2, regular Lungs: clear to auscultation bilaterally, clear to percussion Abdomen: soft, no tender, no distended, no mass, no rebound Extremities: other (tenderness of the right ankle medially.), no cyanosis, no clubbing, no edema Neurological: awake, alert, oriented Infectious Disease Assmt/Plan - Problem List Patient Problems: All Active Problems FEVER WITH DIZZINESS AND HEADACHE (Acute) - Assessment Assessment: 1. Streptococcal sepsis, etiology unknown. 2. Abdominal pain with wide differential includes, Gastroenteritis, Essure infection and others. Not limited to the above mentioned. 3. H/o Gastric bypass. 4. Right ankle pain, unknown etiology, no ulcer, no erythema. - Plan Plan: Will change antibiotics to rocephin. Follow up repeat blood cultures. check echo report. Patient is not ready for discharge. 3P bone scan ordered. Nutritional Asmnt/Malnutr-PDOC - Dietary Evaluation Malnutrition Findings (Please click <Entered> for more info): Nutritional Asmnt/Malnutrition Start: 01/12/18 10: 51 Text: Status: Complete Freq: Protocol: Document 01/12/18 10:52 JAQUAN (Rec: 01/12/18 11:07 JAQUAN ELIZABETH- FNS1) Nutritional Asmnt/Malnutrition Patient General Information Nutritional Screening High Risk Diagnosis Sepsis, rule out cholecystitis Pertinent Medical Hx/Surgical Hx Gastric sleeve (no H&P yet) Subjective Information Per nursing notes, patient with history of gastric sleeve . Patient resting in room with family at time of visit. Tolerating current diet without difficulty Current Diet Order/ Nutrition Support Regular Patient / S.O Not Indicated Pertinent Medications D5-0.45 NS @150 ml/hr, flagyl, Zofran, protonix Pertinent Labs (01/12) Na 134, K 3.3, Glucose 214, Calcium 8, Mg 1.8, Albumin 2.4 Nutritional Hx/Data Height 1.6 m Height (Calculated Centimeters) 160.0 Current Weight (lbs) 110.223 kg Weight (Calculated Kilograms) 110.2 Weight (Calculated Grams) 839903.9 [place] Body Weight 115 % [place] Body Weight 211 Body Mass Index (BMI) 43.0 Recent Weight Change No Weight Status Morbidly Obese GI Symptoms GI Symptoms None Last BM Diarrhea 01/12 Difficult in: None Food Allergies No Cultural/Ethnic/Rastafarian Belief None indicated Usual diet at home Unknown Skin Integrity/Comment: Kyle 21, Intact Estimated Nutritional Goals BEE in Kcals: Adj wt of IBW Calories/Kcals/Kg 25-30 kcal/kg Using Adj wt 66. 8kg Kcals Calculated 6504-0109 kcal/day Protein: Adj wt of IBW Protein g/k-1.2 gm/kg Protein Calculated 65-80 gm/day Fluid: ml 0953-1567 ml/daY Nutritional Problem 2. Problem Problem Altered nutrition related lab values related to Etiology electrolyte imbalance and hyperglycemia aeb Signs/Symptoms: Na 134, K 3.3, Glucose 214, Calcium 8, Mg 1.8, Albumin 2.4 1. Problem Problem Malnutrition related to Etiology possible excessive intake aeb Signs/Symptoms: BMI 43.1 Intervention/Recommendation Comments 1. Continue regular diet as tolerated by patient 2. MD to replace lytes as necessary. 3. If glucose remains elevated , consider modifying to 60 gm CCHO diet. Expected Outcomes/Goals Expected Outcomes/Goals Oral intake >75% of meals, weight trend toward IBW, nutrition related labs normalize F/U MR 01/15-
--- NOTE | 2018-01-14 16:02 | GI Progress Note ---
Subjective - Review of Systems Service Date: 01/14/18 Events since last encounter: No events Subjective: C/O leg pain and anxiety Objective - Results Result Diagrams: 01/14/18 05:15 01/14/18 05:15 Recent Labs: Laboratory Last Values WBC 10.2 Th/cmm (4.8-10.8) 01/14/18 05:15 RBC 3.24 Mil/cmm (3.80-5.10) L 01/14/18 05:15 Hgb 8.6 gm/dL (12-16) L 01/14/18 05:15 Hct 25.7 % (41.0-60) L 01/14/18 05:15 MCV 79.3 fl (81-100) L 01/14/18 05:15 MCH 26.4 pg (27.0-31.0) L 01/14/18 05:15 MCHC Differential 33.2 pg (28.0-36.0) 01/14/18 05:15 RDW 17.2 % (11.5-20.0) 01/14/18 05:15 Plt Count 183 Th/cmm (150-400) 01/14/18 05:15 MPV 10.0 fl 01/14/18 05:15 Add Manual Diff YES 01/12/18 05:00 Neutrophils % 82.8 % (40.0-80.0) H 01/14/18 05:15 Band Neutrophils % 5 % (0-10) 01/13/18 04:55 Lymphocytes % 9.2 % (20.0-50.0) L 01/14/18 05:15 Monocytes % 6.7 % (2.0-10.0) 01/14/18 05:15 Eosinophils % 0.5 % (0.0-5.0) 01/14/18 05:15 Basophils % 0.8 % (0.0-2.0) 01/14/18 05:15 Neutrophils (Manual) 85 % (40-80) H 01/13/18 04:55 Lymphocytes 7 % (20-50) L 01/13/18 04:55 Monocytes 3 % (2-10) 01/13/18 04:55 Anisocytosis 1+ 01/13/18 04:55 Microcytosis 1+ 01/13/18 04:55 ESR 57 mm/hr (0-30) H 01/11/18 17:25 PT 10.6 SECONDS (9.5-11.5) 01/11/18 17:25 INR 1.02 (0.5-1.4) 01/11/18 17:25 PTT (Actin FS) 31.9 SECONDS (26.0-38.0) 01/11/18 17:25 Fibrinogen 255.0 mg/dL (200.0-400.0) 01/12/18 05:00 D-Dimer 3890 ng/mL (100-400) H 01/11/18 19:55 Sodium 138 mEq/L (136-145) 01/14/18 05:15 Potassium 3.5 mEq/L (3.5-5.1) 01/14/18 05:15 Chloride 106 mEq/L (98-107) 01/14/18 05:15 Carbon Dioxide 25.8 mEq/L (21.0-31.0) 01/14/18 05:15 Anion Gap 9.7 (7.0-16.0) 01/14/18 05:15 BUN 5 mg/dL (7-25) L 01/14/18 05:15 Creatinine 0.6 mg/dL (0.6-1.2) 01/14/18 05:15 Est GFR ( Amer) > 60.0 ml/min (>90) 01/14/18 05:15 Est GFR (Non-Af Amer) > 60.0 ml/min 01/14/18 05:15 BUN/Creatinine Ratio 8.3 01/14/18 05:15 Glucose 119 mg/dL (70-105) H 01/14/18 05:15 POC Glucose 99 MG/DL (70 - 105) 01/11/18 20:48 Whole Bld Lactic Acid 1.59 mmol/L (0.60-1.99) 01/11/18 17:25 Calcium 8.8 mg/dL (8.6-10.3) 01/14/18 05:15 Phosphorus 2.7 mg/dL (2.5-5.0) 01/11/18 17:25 Magnesium 1.9 mg/dL (1.9-2.7) 01/13/18 04:55 Total Bilirubin 0.7 mg/dL (0.3-1.0) 01/14/18 05:15 Direct Bilirubin 0.24 mg/dL (0.0-0.2) H 01/13/18 04:55 AST 12 U/L (13-39) L 01/14/18 05:15 ALT 10 U/L (7-52) 01/14/18 05:15 Alkaline Phosphatase 66 U/L (34-104) 01/14/18 05:15 Creatine Kinase 111 U/L (30-223) 01/11/18 17:25 Total Protein 6.5 gm/dL (6.0-8.3) 01/14/18 05:15 Albumin 2.6 gm/dL (3.7-5.3) L 01/14/18 05:15 Globulin 3.9 gm/dL 01/14/18 05:15 Albumin/Globulin Ratio 0.7 (1.0-1.8) L 01/14/18 05:15 Triglycerides 108 mg/dL (<150) 01/14/18 05:15 Cholesterol 84 mg/dL (<200) 01/14/18 05:15 LDL Cholesterol Direct 51 mg/dL (75-193) L 01/14/18 05:15 HDL Cholesterol 11 mg/dL (23-92) L 01/14/18 05:15 Amylase 22 U/L (29-103) L 01/11/18 17:25 Lipase 22 U/L (11-82) 01/13/18 04:55 TSH 1.84 uIU/ml (0.34-5.60) 01/14/18 05:15 Urine Source CLEAN C 01/11/18 17:15 Urine Color YELLOW 01/11/18 17:15 Urine Clarity CLEAR (CLEAR) 01/11/18 17:15 Urine pH 6.0 (4.6 - 8.0) 01/11/18 17:15 Ur Specific [place] 1.025 (1.005-1.030) 01/11/18 17:15 Urine Protein 100 mg/dL (NEGATIVE) H 01/11/18 17:15 Urine Glucose (UA) NEGATIVE mg/dL (NEGATIVE) 01/11/18 17:15 Urine Ketones 15 mg/dL (NEGATIVE) H 01/11/18 17:15 Urine Blood NEGATIVE (NEGATIVE) 01/11/18 17:15 Urine Nitrate NEGATIVE (NEGATIVE) 01/11/18 17:15 Urine Bilirubin MODERATE (NEGATIVE) H 01/11/18 17:15 Urine Ictotest Not Reportable 01/11/18 17:15 Urine Urobilinogen 1.0 E.U./dL (0.2 - 1.0) 01/11/18 17:15 Ur Leukocyte Esterase NEGATIVE (NEGATIVE) 01/11/18 17:15 Urine RBC 2-5 /hpf (0-5) 01/11/18 17:15 Urine WBC 0-2 /hpf (0-5) 01/11/18 17:15 Ur Epithelial Cells FEW /lpf (FEW) 01/11/18 17:15 Urine Bacteria 2+ /hpf (NONE SEEN) H 01/11/18 17:15 Urine Mucus FEW /lpf (FEW) 01/11/18 17:15 Urine Opiates Screen POSITIVE (NEGATIVE) H 01/11/18 17:15 Urine Methadone Screen NEGATIVE (NEGATIVE) 01/11/18 17:15 Ur Barbiturates Screen NEGATIVE (NEGATIVE) 01/11/18 17:15 Ur Tricyclics Screen NEGATIVE (NEGATIVE) 01/11/18 17:15 Ur Phencyclidine Scrn NEGATIVE (NEGATIVE) 01/11/18 17:15 Amphetamines Screen NEGATIVE (NEGATIVE) 01/11/18 17:15 U Methamphetamines Scrn NEGATIVE (NEGATIVE) 01/11/18 17:15 U Benzodiazepines Scrn NEGATIVE (NEGATIVE) 01/11/18 17:15 U Cocaine Metab Screen NEGATIVE (NEGATIVE) 01/11/18 17:15 U Cannabinoids Screen NEGATIVE (NEGATIVE) 01/11/18 17:15 Hepatitis A IgM Ab Negative (Negative) 01/11/18 17:25 Hep Bs Antigen Negative (Negative) 01/11/18 17:25 Hep B Core IgM Ab Negative (Negative) 01/11/18 17:25 Hepatitis C Antibody 0.1 s/co ratio (0.0-0.9) 01/11/18 17:25 - Physical Exam Vitals and I&O: Vital Signs Temp 99.4 F 01/14/18 12:00 Pulse 102 01/14/18 12:00 Resp 24 01/14/18 12:00 BP 115/53 01/14/18 12:00 Pulse Ox 100 01/14/18 12:00 Intake & Output 01/13/18 01/14/18 01/14/18 18:59 06:59 18:59 Intake Total 700 2000 551.667 Output Total 900 1000 Balance -200 1000 551.667 Weight (lbs) 110.223 kg 108.409 kg Intake: Intake, IV Amount 250 1600 551.667 D5-0.45NS w/10 mEq KCL 1, 1400 551.667 000 ml @ 100 mls/hr IV . Q10H [facility] Rx#:[id number] Piperacillin Sodium/ 150 100 Tazobact 3.375 gm In Sodium Chloride 0.9% 50 ml @ 100 mls/hr IV Q6HR [facility] Rx#:[id number] metroNIDAZOLE 500mg/NS 100 100 100mL 500 mg In 100 ml @ 100 mls/hr IV Q8HR [facility] Rx #:[id number] Oral 450 400 Output: Urine 900 1000 Other: # Bowel Movements 1 0 Stool Characteristics Mucoid [place] Weight Source Bedscale Bedscale Active Medications: Current Medications Acetaminophen (Tylenol) 650 mg PO Q4H PRN PRN Reason: Fever above 100F Stop: 03/15/18 11:13 Last Admin: 01/14/18 11:27 Dose: 650 mg Potassium Chloride/Dextrose/Sod Cl (D5-0.45ns W/10 Meq Kcl) 1,000 mls @ 100 mls /hr IV .Q10H [facility] Stop: 03/14/18 13:59 Last Admin: 01/14/18 11:31 Dose: 100 mls/hr Ceftriaxone Sodium 2 gm/ (Dextrose) 100 mls @ 100 mls/hr IV Q24H [facility] Stop: 03/15/18 14:59 Last Admin: 01/14/18 15:59 Dose: 100 mls/hr Lactobacillus Rhamnosus (Culturelle 15b) 1 each PO DAILY [facility] Stop: 03/14/18 14:59 Last Admin: 01/14/18 08:24 Dose: 1 each Lorazepam (Ativan) 1 mg IVP Q4HR PRN; Protocol PRN Reason: tremors Stop: 03/15/18 11:15 Miscellaneous (Probiotic Screen) 1 ea MC PRN PRN PRN Reason: PROTOCOL Stop: 03/14/18 14:34 Morphine Sulfate (Morphine) 1 mg IVP Q3H PRN PRN Reason: Severe Pain Stop: 03/12/18 22:27 Last Admin: 01/14/18 10:12 Dose: 1 mg Ondansetron HCl (Zofran) 4 mg IV Q4HR PRN PRN Reason: nausea/vomit Stop: 03/12/18 19:54 Pantoprazole Sodium (Protonix) 40 mg IVP QDAC [facility] Stop: 03/13/18 07:29 Last Admin: 01/14/18 07:19 Dose: 40 mg General: Alert, Oriented x3, No acute distress Cardiovascular: Regular rate, Normal S1, Normal S2 Lungs: Clear to auscultation Abdomen: Bowel sounds, Soft, no Tender, no Hepatomegaly, no Splenomegaly, no Distended, no Rebound, no Mass, no Guarding, no Drain, no Obese, no Catheter, no Other Assessment/Plan - Problem List Patient Problems: All Active Problems FEVER WITH DIZZINESS AND HEADACHE (Acute) - Assessment Assessment: Abdominal pain Anemia - Plan Plan: 1.Abdominal pain Resolved. Negative W/U Continue current management) Possibly was enteritis 2.Anemia W/U in progress
[2018-01-15] MEDS: D5-0.45NS w/10 mEq KCL 1,000 ML IV SCH ×2 (00:50→13:10)
[2018-01-15 06:48] LABS: % BASOPHILS 0.4 % (0.0-2.0); % EOSINOPHILS 0.7 % (0.0-5.0); % LYMPHOCYTES 13.5 % (20.0-50.0); % MONOCYTES 9.7 % (2.0-10.0); % NEUTROPHILS 75.7 % (40.0-80.0); EOSINOPHILE ABSOLUTE 0.1 Th/cmm (0.1-0.4); HEMATOCRIT 26.1 % (41.0-60); HEMOGLOBIN 8.7 gm/dL (12-16); LYMPHOCYTE ABSOLUTE 1.2 Th/cmm (1.5-3.0); MEAN CELL VOLUME 79.3 fl (81-100); MEAN CORPUSCULAR HEMOGLOBIN 26.6 pg (27.0-31.0); MEAN CORPUSCULAR HGB CONC 33.5 pg (28.0-36.0); MEAN PLATELET VOLUME 9.3 fl; MONOCYTE ABSOLUTE 0.9 Th/cmm (0.3-1.0); NEUTROPHILE ABSOLUTE 6.6 Th/cmm (1.8-8.0); PLATELET COUNT 240 Th/cmm (150-400); RED BLOOD COUNT 3.29 Mil/cmm (3.80-5.10); RED CELL DISTRIBUTION WIDTH 16.4 % (11.5-20.0); WHITE BLOOD COUNT 8.8 Th/cmm (4.8-10.8)
[2018-01-15 07:21] LABS: BUN - UREA NITROGEN 5 mg/dL (7-25); CALCIUM SERUM 8.8 mg/dL (8.6-10.3); CARBON DIOXIDE 26.5 mEq/L (21.0-31.0); CHLORIDE 104 mEq/L (98-107); CREATININE - SERUM 0.5 mg/dL (0.6-1.2); GFR AFRICAN-AMERICAN > 60.0 ml/min (>90); GFR NON AFRICAN-AMERICAN > 60.0 ml/min; GLUCOSE 105 mg/dL (70-105); MAGNESIUM 1.8 mg/dL (1.9-2.7); POTASSIUM SERUM 3.5 mEq/L (3.5-5.1); SODIUM SERUM 136 mEq/L (136-145)
[2018-01-15] MEDS ORDERED: Mag Sulfate 2gm/50mL Premix 2 GM/50 ML BAG IV ONE (09:43)
[2018-01-15 09:46] LABS: ESR SEDIMENTATION SED RATE 90 mm/hr (0-30)
[2018-01-15] MEDS: Lactobacillus Rhamnosus GG 15 Billion CFU CAP.SPRINK PO SCH (10:21)
--- NOTE | 2018-01-15 13:56 | Cardiology ---
01/14/[address] Viveros. M-MODE ECHOCARDIOGRAM: Mitral valve, anterior leaflet of mitral valve shows normal excursion, EF velocity. Posterior leaflet of mitral valve shows normal excursion. Left ventricular posterior wall shows increased thickness, normal excursion. Interventricular septum shows increased thickness, normal excursion, hypertrophy of the left ventricle, ejection fraction 65%. Left atrium normal. Aortic root shows normal dimension, normal excursion of aortic leaflets. CONCLUSION: Hypertrophy of the left ventricle, ejection fraction 65%. 2D ECHO: Long axis view showed normal sized left ventricle with hypertrophy of the left ventricle. Left atrium normal. Aortic root shows normal dimension, normal excursion of aortic leaflets. Short axis view of mitral valve normal. Short axis view of aortic valve normal. Apical four chamber view showed normal sized left ventricle with hypertrophy of the left ventricle. Left atrium normal. Right ventricular cavity, right atrium normal, no pericardial effusion. CONCLUSION: Hypertrophy of the left ventricle, ejection fraction 65%. Doppler study shows mild mitral regurgitation, mild tricuspid regurgitation, moderate pulmonary regurgitation, right ventricular systolic pressure 34 mmHg. [facility]# [id number]
--- NOTE | 2018-01-15 14:32 | Diagnostic Imaging Report ---
Radionuclide 3 phase bone scan of the ankles HISTORY: Pain, osteomyelitis 25.3 mCi technetium MDP used in the exam. Initial perfusion and subsequent blood pool and delayed images obtained. Initial perfusion/blood flow images are unremarkable with no abnormal foci or regions of increased activity. Blood pool images do not demonstrate any significant focal increased activity. Delayed images demonstrate fairly symmetric increased activity about the tibiotalar joint regions bilaterally. The overall appearance suggests arthritic change. IMPRESSION: 1. No definite scintigraphic evidence of osteomyelitis
--- NOTE | 2018-01-15 16:04 | GI Progress Note ---
Subjective - Review of Systems Service Date: 01/15/18 Events since last encounter: No events Subjective: No GI complaint Objective - Results Result Diagrams: 01/15/18 06:37 01/15/18 06:37 Recent Labs: Laboratory Last Values WBC 8.8 Th/cmm (4.8-10.8) 01/15/18 06:37 RBC 3.29 Mil/cmm (3.80-5.10) L 01/15/18 06:37 Hgb 8.7 gm/dL (12-16) L 01/15/18 06:37 Hct 26.1 % (41.0-60) L 01/15/18 06:37 MCV 79.3 fl (81-100) L 01/15/18 06:37 MCH 26.6 pg (27.0-31.0) L 01/15/18 06:37 MCHC Differential 33.5 pg (28.0-36.0) 01/15/18 06:37 RDW 16.4 % (11.5-20.0) 01/15/18 06:37 Plt Count 240 Th/cmm (150-400) 01/15/18 06:37 MPV 9.3 fl 01/15/18 06:37 Add Manual Diff YES 01/12/18 05:00 Neutrophils % 75.7 % (40.0-80.0) 01/15/18 06:37 Band Neutrophils % 5 % (0-10) 01/13/18 04:55 Lymphocytes % 13.5 % (20.0-50.0) L 01/15/18 06:37 Monocytes % 9.7 % (2.0-10.0) 01/15/18 06:37 Eosinophils % 0.7 % (0.0-5.0) 01/15/18 06:37 Basophils % 0.4 % (0.0-2.0) 01/15/18 06:37 Neutrophils (Manual) 85 % (40-80) H 01/13/18 04:55 Lymphocytes 7 % (20-50) L 01/13/18 04:55 Monocytes 3 % (2-10) 01/13/18 04:55 Anisocytosis 1+ 01/13/18 04:55 Microcytosis 1+ 01/13/18 04:55 ESR 90 mm/hr (0-30) H 01/15/18 06:37 PT 10.6 SECONDS (9.5-11.5) 01/11/18 17:25 INR 1.02 (0.5-1.4) 01/11/18 17:25 PTT (Actin FS) 31.9 SECONDS (26.0-38.0) 01/11/18 17:25 Fibrinogen 255.0 mg/dL (200.0-400.0) 01/12/18 05:00 D-Dimer 3890 ng/mL (100-400) H 01/11/18 19:55 Sodium 136 mEq/L (136-145) 01/15/18 06:37 Potassium 3.5 mEq/L (3.5-5.1) 01/15/18 06:37 Chloride 104 mEq/L (98-107) 01/15/18 06:37 Carbon Dioxide 26.5 mEq/L (21.0-31.0) 01/15/18 06:37 Anion Gap 9.0 (7.0-16.0) 01/15/18 06:37 BUN 5 mg/dL (7-25) L 01/15/18 06:37 Creatinine 0.5 mg/dL (0.6-1.2) L 01/15/18 06:37 Est GFR ( Amer) > 60.0 ml/min (>90) 01/15/18 06:37 Est GFR (Non-Af Amer) > 60.0 ml/min 01/15/18 06:37 BUN/Creatinine Ratio 10.0 01/15/18 06:37 Glucose 105 mg/dL (70-105) 01/15/18 06:37 POC Glucose 99 MG/DL (70 - 105) 01/11/18 20:48 Whole Bld Lactic Acid 1.59 mmol/L (0.60-1.99) 01/11/18 17:25 Calcium 8.8 mg/dL (8.6-10.3) 01/15/18 06:37 Phosphorus 2.7 mg/dL (2.5-5.0) 01/11/18 17:25 Magnesium 1.8 mg/dL (1.9-2.7) L 01/15/18 06:37 Total Bilirubin 0.7 mg/dL (0.3-1.0) 01/14/18 05:15 Direct Bilirubin 0.24 mg/dL (0.0-0.2) H 01/13/18 04:55 AST 12 U/L (13-39) L 01/14/18 05:15 ALT 10 U/L (7-52) 01/14/18 05:15 Alkaline Phosphatase 66 U/L (34-104) 01/14/18 05:15 Creatine Kinase 111 U/L (30-223) 01/11/18 17:25 C-Reactive Protein 11.3 mg/dL (0.0-0.9) H 01/15/18 06:37 Total Protein 6.5 gm/dL (6.0-8.3) 01/14/18 05:15 Albumin 2.6 gm/dL (3.7-5.3) L 01/14/18 05:15 Globulin 3.9 gm/dL 01/14/18 05:15 Albumin/Globulin Ratio 0.7 (1.0-1.8) L 01/14/18 05:15 Triglycerides 108 mg/dL (<150) 01/14/18 05:15 Cholesterol 84 mg/dL (<200) 01/14/18 05:15 LDL Cholesterol Direct 51 mg/dL (75-193) L 01/14/18 05:15 HDL Cholesterol 11 mg/dL (23-92) L 01/14/18 05:15 Amylase 22 U/L (29-103) L 01/11/18 17:25 Lipase 22 U/L (11-82) 01/13/18 04:55 TSH 1.84 uIU/ml (0.34-5.60) 01/14/18 05:15 Urine Source CLEAN C 01/11/18 17:15 Urine Color YELLOW 01/11/18 17:15 Urine Clarity CLEAR (CLEAR) 01/11/18 17:15 Urine pH 6.0 (4.6 - 8.0) 01/11/18 17:15 Ur Specific [place] 1.025 (1.005-1.030) 01/11/18 17:15 Urine Protein 100 mg/dL (NEGATIVE) H 01/11/18 17:15 Urine Glucose (UA) NEGATIVE mg/dL (NEGATIVE) 01/11/18 17:15 Urine Ketones 15 mg/dL (NEGATIVE) H 01/11/18 17:15 Urine Blood NEGATIVE (NEGATIVE) 01/11/18 17:15 Urine Nitrate NEGATIVE (NEGATIVE) 01/11/18 17:15 Urine Bilirubin MODERATE (NEGATIVE) H 01/11/18 17:15 Urine Ictotest Not Reportable 01/11/18 17:15 Urine Urobilinogen 1.0 E.U./dL (0.2 - 1.0) 01/11/18 17:15 Ur Leukocyte Esterase NEGATIVE (NEGATIVE) 01/11/18 17:15 Urine RBC 2-5 /hpf (0-5) 01/11/18 17:15 Urine WBC 0-2 /hpf (0-5) 01/11/18 17:15 Ur Epithelial Cells FEW /lpf (FEW) 01/11/18 17:15 Urine Bacteria 2+ /hpf (NONE SEEN) H 01/11/18 17:15 Urine Mucus FEW /lpf (FEW) 01/11/18 17:15 Urine Opiates Screen POSITIVE (NEGATIVE) H 01/11/18 17:15 Urine Methadone Screen NEGATIVE (NEGATIVE) 01/11/18 17:15 Ur Barbiturates Screen NEGATIVE (NEGATIVE) 01/11/18 17:15 Ur Tricyclics Screen NEGATIVE (NEGATIVE) 01/11/18 17:15 Ur Phencyclidine Scrn NEGATIVE (NEGATIVE) 01/11/18 17:15 Amphetamines Screen NEGATIVE (NEGATIVE) 01/11/18 17:15 U Methamphetamines Scrn NEGATIVE (NEGATIVE) 01/11/18 17:15 U Benzodiazepines Scrn NEGATIVE (NEGATIVE) 01/11/18 17:15 U Cocaine Metab Screen NEGATIVE (NEGATIVE) 01/11/18 17:15 U Cannabinoids Screen NEGATIVE (NEGATIVE) 01/11/18 17:15 Hepatitis A IgM Ab Negative (Negative) 01/11/18 17:25 Hep Bs Antigen Negative (Negative) 01/11/18 17:25 Hep B Core IgM Ab Negative (Negative) 01/11/18 17:25 Hepatitis C Antibody 0.1 s/co ratio (0.0-0.9) 01/11/18 17:25 - Physical Exam Vitals and I&O: Vital Signs Temp 98.0 F 01/15/18 15:08 Pulse 87 01/15/18 15:08 Resp 18 01/15/18 15:08 BP 117/55 01/15/18 15:08 Pulse Ox 99 01/15/18 15:08 Intake & Output 01/14/18 01/15/18 01/15/18 18:59 06:59 18:59 Intake Total 362.349 8671 1000 Balance 602.201 6124 1000 Weight (lbs) 108.409 kg Intake: Intake, IV Amount 059.913 1096 1000 D5-0.45NS w/10 mEq KCL 1, 736.313 3870 1000 000 ml @ 100 mls/hr IV . Q10H [facility] Rx#:[id number] cefTRIAXone 2 gm In 100 Dextrose 5% 100 ml @ 100 mls/hr IV Q24H [facility] Rx#: [id number] Oral 600 Other: # Voids 3 # Bowel Movements 2 Stool Characteristics Soft Soft Liquid Weight Source Bedscale Active Medications: Current Medications Acetaminophen (Tylenol) 650 mg PO Q4H PRN PRN Reason: Fever above 100F Stop: 03/15/18 11:13 Last Admin: 01/15/18 10:29 Dose: 650 mg Potassium Chloride/Dextrose/Sod Cl (D5-0.45ns W/10 Meq Kcl) 1,000 mls @ 100 mls /hr IV .Q10H [facility] Stop: 03/14/18 13:59 Last Admin: 01/15/18 13:10 Dose: 100 mls/hr Ceftriaxone Sodium 2 gm/ (Dextrose) 100 mls @ 100 mls/hr IV Q24H [facility] Stop: 03/15/18 14:59 Last Admin: 01/15/18 14:39 Dose: 100 mls/hr Ibuprofen (Motrin) 800 mg PO TID [facility] Stop: 03/16/18 09:59 Last Admin: 01/15/18 13:03 Dose: Not Given Lactobacillus Rhamnosus (Culturelle 15b) 1 each PO DAILY [facility] Stop: 03/14/18 14:59 Last Admin: 01/15/18 10:21 Dose: 1 each Lorazepam (Ativan) 1 mg IVP Q4HR PRN; Protocol PRN Reason: tremors Stop: 03/15/18 11:15 Miscellaneous (Probiotic Screen) 1 ea MC PRN PRN PRN Reason: PROTOCOL Stop: 03/14/18 14:34 Morphine Sulfate (Morphine) 1 mg IVP Q3H PRN PRN Reason: Severe Pain Stop: 03/12/18 22:27 Last Admin: 01/14/18 23:15 Dose: 1 mg Ondansetron HCl (Zofran) 4 mg IV Q4HR PRN PRN Reason: nausea/vomit Stop: 03/12/18 19:54 Pantoprazole Sodium (Protonix) 40 mg IVP QDAC [facility] Stop: 03/13/18 07:29 Last Admin: 01/15/18 09:45 Dose: 40 mg Prednisone (Deltasone) 10 mg PO BID [facility] Stop: 03/16/18 09:59 Last Admin: 01/15/18 10:20 Dose: 10 mg General: Alert, Oriented x3, No acute distress Cardiovascular: Regular rate, Normal S1, Normal S2 Lungs: Clear to auscultation Abdomen: Bowel sounds, Soft, no Tender, no Hepatomegaly, no Splenomegaly, no Distended, no Rebound, no Mass, no Guarding, no Drain, no Obese, no Catheter, no Other Assessment/Plan - Problem List Patient Problems: All Active Problems FEVER WITH DIZZINESS AND HEADACHE (Acute) - Assessment Assessment: Abdominal pain Anemia - Plan Plan: 1.Abdominal pain Resolved. Negative W/U for GI causes [place] pelvic inflammation Continue current management) Possibly was enteritis Will sign off 2.Anemia F/U as OPT
[2018-01-16] MEDS: D5-0.45NS w/10 mEq KCL 1,000 ML IV SCH ×2 (06:51→08:12)
[2018-01-16] MEDS: Lactobacillus Rhamnosus GG 15 Billion CFU CAP.SPRINK PO SCH (08:10)
[2018-01-16 08:34] LABS: ANION GAP 8.6 (7.0-16.0); BUN - UREA NITROGEN 5 mg/dL (7-25); CALCIUM SERUM 8.2 mg/dL (8.6-10.3); CARBON DIOXIDE 25.7 mEq/L (21.0-31.0); CHLORIDE 104 mEq/L (98-107); CREATININE - SERUM 0.5 mg/dL (0.6-1.2); GFR AFRICAN-AMERICAN > 60.0 ml/min (>90); GFR NON AFRICAN-AMERICAN > 60.0 ml/min; GLUCOSE 124 mg/dL (70-105); POTASSIUM SERUM 3.3 mEq/L (3.5-5.1); SODIUM SERUM 135 mEq/L (136-145)
[2018-01-16] MEDS ORDERED: Potassium Chloride 20 mEq ER Tab PO ONE (10:00)
--- NOTE | 2018-01-16 12:52 | Infectious Disease Prog Note ---
Infectious Disease Subjective - Review of Systems Service Date: 01/16/18 Subjective: There is no new change, no fever. c/o pain in right ankle. Infectious Disease Objective - Results Result Diagrams: 01/15/18 06:37 01/16/18 07:38 Recent Labs: Laboratory Last Values WBC 8.8 Th/cmm (4.8-10.8) 01/15/18 06:37 RBC 3.29 Mil/cmm (3.80-5.10) L 01/15/18 06:37 Hgb 8.7 gm/dL (12-16) L 01/15/18 06:37 Hct 26.1 % (41.0-60) L 01/15/18 06:37 MCV 79.3 fl (81-100) L 01/15/18 06:37 MCH 26.6 pg (27.0-31.0) L 01/15/18 06:37 MCHC Differential 33.5 pg (28.0-36.0) 01/15/18 06:37 RDW 16.4 % (11.5-20.0) 01/15/18 06:37 Plt Count 240 Th/cmm (150-400) 01/15/18 06:37 MPV 9.3 fl 01/15/18 06:37 Add Manual Diff YES 01/12/18 05:00 Neutrophils % 75.7 % (40.0-80.0) 01/15/18 06:37 Band Neutrophils % 5 % (0-10) 01/13/18 04:55 Lymphocytes % 13.5 % (20.0-50.0) L 01/15/18 06:37 Monocytes % 9.7 % (2.0-10.0) 01/15/18 06:37 Eosinophils % 0.7 % (0.0-5.0) 01/15/18 06:37 Basophils % 0.4 % (0.0-2.0) 01/15/18 06:37 Neutrophils (Manual) 85 % (40-80) H 01/13/18 04:55 Lymphocytes 7 % (20-50) L 01/13/18 04:55 Monocytes 3 % (2-10) 01/13/18 04:55 Anisocytosis 1+ 01/13/18 04:55 Microcytosis 1+ 01/13/18 04:55 ESR 90 mm/hr (0-30) H 01/15/18 06:37 PT 10.6 SECONDS (9.5-11.5) 01/11/18 17:25 INR 1.02 (0.5-1.4) 01/11/18 17:25 PTT (Actin FS) 31.9 SECONDS (26.0-38.0) 01/11/18 17:25 Fibrinogen 255.0 mg/dL (200.0-400.0) 01/12/18 05:00 D-Dimer 3890 ng/mL (100-400) H 01/11/18 19:55 Sodium 135 mEq/L (136-145) L 01/16/18 07:38 Potassium 3.3 mEq/L (3.5-5.1) L 01/16/18 07:38 Chloride 104 mEq/L (98-107) 01/16/18 07:38 Carbon Dioxide 25.7 mEq/L (21.0-31.0) 01/16/18 07:38 Anion Gap 8.6 (7.0-16.0) 01/16/18 07:38 BUN 5 mg/dL (7-25) L 01/16/18 07:38 Creatinine 0.5 mg/dL (0.6-1.2) L 01/16/18 07:38 Est GFR ( Amer) > 60.0 ml/min (>90) 01/16/18 07:38 Est GFR (Non-Af Amer) > 60.0 ml/min 01/16/18 07:38 BUN/Creatinine Ratio 10.0 01/16/18 07:38 Glucose 124 mg/dL (70-105) H 01/16/18 07:38 POC Glucose 99 MG/DL (70 - 105) 01/11/18 20:48 Whole Bld Lactic Acid 1.59 mmol/L (0.60-1.99) 01/11/18 17:25 Calcium 8.2 mg/dL (8.6-10.3) L 01/16/18 07:38 Phosphorus 2.7 mg/dL (2.5-5.0) 01/11/18 17:25 Magnesium 2.0 mg/dL (1.9-2.7) 01/16/18 07:38 Total Bilirubin 0.7 mg/dL (0.3-1.0) 01/14/18 05:15 Direct Bilirubin 0.24 mg/dL (0.0-0.2) H 01/13/18 04:55 AST 12 U/L (13-39) L 01/14/18 05:15 ALT 10 U/L (7-52) 01/14/18 05:15 Alkaline Phosphatase 66 U/L (34-104) 01/14/18 05:15 Creatine Kinase 111 U/L (30-223) 01/11/18 17:25 C-Reactive Protein 11.3 mg/dL (0.0-0.9) H 01/15/18 06:37 Total Protein 6.5 gm/dL (6.0-8.3) 01/14/18 05:15 Albumin 2.6 gm/dL (3.7-5.3) L 01/14/18 05:15 Globulin 3.9 gm/dL 01/14/18 05:15 Albumin/Globulin Ratio 0.7 (1.0-1.8) L 01/14/18 05:15 Triglycerides 108 mg/dL (<150) 01/14/18 05:15 Cholesterol 84 mg/dL (<200) 01/14/18 05:15 LDL Cholesterol Direct 51 mg/dL (75-193) L 01/14/18 05:15 HDL Cholesterol 11 mg/dL (23-92) L 01/14/18 05:15 Amylase 22 U/L (29-103) L 01/11/18 17:25 Lipase 22 U/L (11-82) 01/13/18 04:55 TSH 1.84 uIU/ml (0.34-5.60) 01/14/18 05:15 Urine Source CLEAN C 01/11/18 17:15 Urine Color YELLOW 01/11/18 17:15 Urine Clarity CLEAR (CLEAR) 01/11/18 17:15 Urine pH 6.0 (4.6 - 8.0) 01/11/18 17:15 Ur Specific [place] 1.025 (1.005-1.030) 01/11/18 17:15 Urine Protein 100 mg/dL (NEGATIVE) H 01/11/18 17:15 Urine Glucose (UA) NEGATIVE mg/dL (NEGATIVE) 01/11/18 17:15 Urine Ketones 15 mg/dL (NEGATIVE) H 01/11/18 17:15 Urine Blood NEGATIVE (NEGATIVE) 01/11/18 17:15 Urine Nitrate NEGATIVE (NEGATIVE) 01/11/18 17:15 Urine Bilirubin MODERATE (NEGATIVE) H 01/11/18 17:15 Urine Ictotest Not Reportable 01/11/18 17:15 Urine Urobilinogen 1.0 E.U./dL (0.2 - 1.0) 01/11/18 17:15 Ur Leukocyte Esterase NEGATIVE (NEGATIVE) 01/11/18 17:15 Urine RBC 2-5 /hpf (0-5) 01/11/18 17:15 Urine WBC 0-2 /hpf (0-5) 01/11/18 17:15 Ur Epithelial Cells FEW /lpf (FEW) 01/11/18 17:15 Urine Bacteria 2+ /hpf (NONE SEEN) H 01/11/18 17:15 Urine Mucus FEW /lpf (FEW) 01/11/18 17:15 Urine Opiates Screen POSITIVE (NEGATIVE) H 01/11/18 17:15 Urine Methadone Screen NEGATIVE (NEGATIVE) 01/11/18 17:15 Ur Barbiturates Screen NEGATIVE (NEGATIVE) 01/11/18 17:15 Ur Tricyclics Screen NEGATIVE (NEGATIVE) 01/11/18 17:15 Ur Phencyclidine Scrn NEGATIVE (NEGATIVE) 01/11/18 17:15 Amphetamines Screen NEGATIVE (NEGATIVE) 01/11/18 17:15 U Methamphetamines Scrn NEGATIVE (NEGATIVE) 01/11/18 17:15 U Benzodiazepines Scrn NEGATIVE (NEGATIVE) 01/11/18 17:15 U Cocaine Metab Screen NEGATIVE (NEGATIVE) 01/11/18 17:15 U Cannabinoids Screen NEGATIVE (NEGATIVE) 01/11/18 17:15 Rheumatoid Factor <10.0 IU/mL (0.0-13.9) 01/15/18 06:37 Hepatitis A IgM Ab Negative (Negative) 01/11/18 17:25 Hep Bs Antigen Negative (Negative) 01/11/18 17:25 Hep B Core IgM Ab Negative (Negative) 01/11/18 17:25 Hepatitis C Antibody 0.1 s/co ratio (0.0-0.9) 01/11/18 17:25 - Physical Exam Vitals and I&O: Vital Signs Temp 98.2 F 01/16/18 07:00 Pulse 94 01/16/18 07:00 Resp 17 01/16/18 10:00 BP 127/67 01/16/18 07:00 Pulse Ox 98 01/16/18 07:00 Intake & Output 01/15/18 01/16/18 01/16/18 18:59 06:59 18:59 Intake Total 1000 1000 135 Balance 1000 1000 135 Weight (lbs) 107.048 kg Intake: Intake, IV Amount 1000 1000 135 D5-0.45NS w/10 mEq KCL 1, 1000 1000 135 000 ml @ 100 mls/hr IV . Q10H [facility] Rx#:[id number] Other: # Voids 3 # Bowel Movements 2 Stool Characteristics Soft Soft Soft Weight Source Bedscale Active Medications: Current Medications Acetaminophen (Tylenol) 650 mg PO Q4H PRN PRN Reason: Fever above 100F Stop: 03/15/18 11:13 Last Admin: 01/16/18 08:09 Dose: 650 mg Potassium Chloride/Dextrose/Sod Cl (D5-0.45ns W/10 Meq Kcl) 1,000 mls @ 100 mls /hr IV .Q10H [facility] Stop: 03/14/18 13:59 Last Admin: 01/16/18 08:12 Dose: 100 mls/hr Ceftriaxone Sodium 2 gm/ (Dextrose) 100 mls @ 100 mls/hr IV Q24H [facility] Stop: 03/15/18 14:59 Last Admin: 01/15/18 14:39 Dose: 100 mls/hr Lactobacillus Rhamnosus (Culturelle 15b) 1 each PO DAILY [facility] Stop: 03/14/18 14:59 Last Admin: 01/16/18 08:10 Dose: 1 each Lorazepam (Ativan) 1 mg IVP Q4HR PRN; Protocol PRN Reason: tremors Stop: 03/15/18 11:15 Miscellaneous (Probiotic Screen) 1 ea MC PRN PRN PRN Reason: PROTOCOL Stop: 03/14/18 14:34 Morphine Sulfate (Morphine) 1 mg IVP Q3H PRN PRN Reason: Severe Pain Stop: 03/12/18 22:27 Last Admin: 01/14/18 23:15 Dose: 1 mg Ondansetron HCl (Zofran) 4 mg IV Q4HR PRN PRN Reason: nausea/vomit Stop: 03/12/18 19:54 Pantoprazole Sodium (Protonix) 40 mg IVP QDAC [facility] Stop: 03/13/18 07:29 Last Admin: 01/16/18 06:52 Dose: 40 mg Prednisone (Deltasone) 10 mg PO BID [facility] Stop: 03/16/18 09:59 Last Admin: 01/16/18 08:10 Dose: 10 mg General: no acute distress, well developed, well nourished HEENT: atraumatic, normocephalic, PERRLA, EOMI, moist mucous membrane Neck: supple, no thyromegaly Cardiovascular: S1S2, regular Lungs: clear to auscultation bilaterally, clear to percussion Abdomen: soft, no tender Extremities: no cyanosis, no clubbing, no edema Neurological: awake, alert, oriented Skin: intact Infectious Disease Assmt/Plan - Problem List Patient Problems: All Active Problems FEVER WITH DIZZINESS AND HEADACHE (Acute) - Assessment Assessment: 1. Streptococcal sepsis, etiology unknown. 2. Abdominal pain with wide differential includes, Gastroenteritis, Essure infection and others. Not limited to the above mentioned. 3. H/o Gastric bypass. 4. Right ankle pain, unknown etiology, no ulcer, no erythema. Bone scan is negative. - Plan Plan: Continue Rocephin 2 gm IV daily for 12 more days. DC patient home from ID point of view. Follow up with her PCP and benefits officer as put patient basis. Nutritional Asmnt/Malnutr-PDOC - Dietary Evaluation Malnutrition Findings (Please click <Entered> for more info): Nutritional Asmnt/Malnutrition Start: 01/12/18 10: 51 Text: Status: Complete Freq: Protocol: Document 01/12/18 10:52 JAQUAN (Rec: 01/12/18 11:07 JAQUAN ELIZABETH- [email or web address]) Nutritional Asmnt/Malnutrition Patient General Information Nutritional Screening High Risk Diagnosis Sepsis, rule out cholecystitis Pertinent Medical Hx/Surgical Hx Gastric sleeve (no H&P yet) Subjective Information Per nursing notes, patient with history of gastric sleeve . Patient resting in room with family at time of visit. Tolerating current diet without difficulty Current Diet Order/ Nutrition Support Regular Patient / S.O Not Indicated Pertinent Medications D5-0.45 NS @150 ml/hr, flagyl, Zofran, protonix Pertinent Labs (01/12) Na 134, K 3.3, Glucose 214, Calcium 8, Mg 1.8, Albumin 2.4 Nutritional Hx/Data Height 1.6 m Height (Calculated Centimeters) 160.0 Current Weight (lbs) 110.223 kg Weight (Calculated Kilograms) 110.2 Weight (Calculated Grams) 689372.9 [place] Body Weight 115 % [place] Body Weight 211 Body Mass Index (BMI) 43.0 Recent Weight Change No Weight Status Morbidly Obese GI Symptoms GI Symptoms None Last BM Diarrhea 01/12 Difficult in: None Food Allergies No Cultural/Ethnic/Faith Belief None indicated Usual diet at home Unknown Skin Integrity/Comment: Kyle 21, Intact Estimated Nutritional Goals BEE in Kcals: Adj wt of IBW Calories/Kcals/Kg 25-30 kcal/kg Using Adj wt 66. 8kg Kcals Calculated 2495-7674 kcal/day Protein: Adj wt of IBW Protein g/k-1.2 gm/kg Protein Calculated 65-80 gm/day Fluid: ml 7894-4886 ml/daY Nutritional Problem 2. Problem Problem Altered nutrition related lab values related to Etiology electrolyte imbalance and hyperglycemia aeb Signs/Symptoms: Na 134, K 3.3, Glucose 214, Calcium 8, Mg 1.8, Albumin 2.4 1. Problem Problem Malnutrition related to Etiology possible excessive intake aeb Signs/Symptoms: BMI 43.1 Intervention/Recommendation Comments 1. Continue regular diet as tolerated by patient 2. MD to replace lytes as necessary. 3. If glucose remains elevated , consider modifying to 60 gm CCHO diet. Expected Outcomes/Goals Expected Outcomes/Goals Oral intake >75% of meals, weight trend toward IBW, nutrition related labs normalize F/U MR 01/15-
[2018-01-17] MEDS: D5-0.45NS w/10 mEq KCL 1,000 ML IV SCH (03:04)
[2018-01-17 08:38] LABS: % BASOPHILS 0.5 % (0.0-2.0); % EOSINOPHILS 0.8 % (0.0-5.0); % LYMPHOCYTES 13.6 % (20.0-50.0); % NEUTROPHILS 79.1 % (40.0-80.0); EOSINOPHILE ABSOLUTE 0.1 Th/cmm (0.1-0.4); LYMPHOCYTE ABSOLUTE 1.3 Th/cmm (1.5-3.0); MEAN CELL VOLUME 80.3 fl (81-100); MEAN CORPUSCULAR HEMOGLOBIN 26.9 pg (27.0-31.0); MEAN CORPUSCULAR HGB CONC 33.5 pg (28.0-36.0); MEAN PLATELET VOLUME 9.2 fl; MONOCYTE ABSOLUTE 0.6 Th/cmm (0.3-1.0); NEUTROPHILE ABSOLUTE 7.3 Th/cmm (1.8-8.0); PLATELET COUNT 362 Th/cmm (150-400); RED BLOOD COUNT 2.99 Mil/cmm (3.80-5.10); RED CELL DISTRIBUTION WIDTH 16.4 % (11.5-20.0); WHITE BLOOD COUNT 9.3 Th/cmm (4.8-10.8)
[2018-01-17 08:59] LABS: ALB/GLOB RATIO 0.7 (1.0-1.8); ALBUMIN 2.4 gm/dL (3.7-5.3); ALKALINE PHOSPHATASE 53 U/L (34-104); ANION GAP 9.7 (7.0-16.0); BILIRUBIN,TOTAL 0.3 mg/dL (0.3-1.0); BUN - UREA NITROGEN 4 mg/dL (7-25); CALCIUM SERUM 8.2 mg/dL (8.6-10.3); CARBON DIOXIDE 25.9 mEq/L (21.0-31.0); CHLORIDE 105 mEq/L (98-107); CREATININE - SERUM 0.5 mg/dL (0.6-1.2); GFR AFRICAN-AMERICAN > 60.0 ml/min (>90); GFR NON AFRICAN-AMERICAN > 60.0 ml/min; GLUCOSE 106 mg/dL (70-105); POTASSIUM SERUM 3.6 mEq/L (3.5-5.1); SGOT 14 U/L (13-39); SGPT/ALT 9 U/L (7-52); SODIUM SERUM 137 mEq/L (136-145); TOTAL PROTEIN,SERUM 6.1 gm/dL (6.0-8.3)
--- NOTE | 2018-01-17 09:56 | Discharge Summary ---
DATE OF DISCHARGE: 01/17/2018 ADMITTING DIAGNOSES: 1. Sepsis/shock. Differential likely an abdominal source (rule out cholecystitis versus appendicitis versus acute gastroenteritis) versus pelvic source (history of Essure fallopian implants, history of gastric sleeve surgery). 2. Leukocytosis with bandemia. 3. Elevated D-dimer. 4. Anemia. 5. Severe right ankle pain-rule out septic joint. SECONDARY DIAGNOSES: 1. History of gastric sleeve surgery. 2. History of Essure fallopian implants. 3. History of essential hypertension -- currently off meds. DISCHARGE DIAGNOSES: 1. Fever, sepsis, clinically improved/hemodynamically stable, clinically resolved. 2. Group B bacteremia (Strep agalactiae) on IV Rocephin. Clinically stable with repeat negative blood cultures. 3. Leukocytosis with bandemia, resolved. 4. Severe right ankle pain. Workup is negative for septic joint. X-ray and bone scan of the joint with negative results. CONSULTANTS: ID, Dr. Bales; GI, Dr. Stone. MAJOR PROCEDURES: On 01/11/2018, chest, abdomen and pelvic CTA showing no evidence of pulmonary emboli. There was a large osteochondroma on one of the left mid ribs extending into the pericardial space. The study demonstrates normal variation of lung parenchyma at the bases. The liver and spleen are intact. Gastric bypass procedure sequela appreciated. Gallbladder is free of calculi. Kidneys demonstrate no evidence of obstructive uropathy or nephrolithiasis. No free fluid is noted. There is evidence of enlargement of the uterus extending into upper abdomen. Fibroid infiltration cannot be excluded. There is evidence of pattern bodies in the uterus, which might represent previous tubal ligation procedure. There is no free fluid noted. Bony structures demonstrated no evidence of lytic or blastic changes. There is evidence of lucency in the body of L5 lumbar vertebra. A cyst cannot be excluded. On 01/11/2018, abdominal ultrasound shows extremely limited examination of the abdomen. There is no evidence of cholelithiasis on 01/11/2018 as a transvaginal ultrasound, enlargement of the uterus with fibroid infiltration. The study was extremely limited due to the size of the patient as well as a large amount of intraabdominal bowel gas. Ovaries were not visualized. Endometrial thickness was not seen. On 01/12/2018, she underwent a HIDA scan showing no abnormalities. On 01/11/2018, she underwent an x-ray of the right ankle showing no abnormalities. On 01/15/2018, a bone scan of both ankles showed no definitive evidence of osteomyelitis on 01/15/2018. A 2D echo showed hypertrophy of the left ventricle with an EF of 65%. Doppler study showed mild mitral regurgitation, mild tricuspid regurgitation, moderate pulmonary regurgitation, right ventricular systolic pressure. BRIEF HOSPITAL COURSE: The patient is a very pleasant 42-year-old -[place] lady with no major medical problems who per her 's account had been feeling somewhat ill for the last couple of weeks complaining of nonspecific abdominal pain, occasional body aches with some nausea and vomiting. She denied any hematemesis, any bilious emesis and there was no mention of bright red blood per rectum. She also apparently had some loose BMs, but again no other abnormalities were noted. She came back from a 2 week vacation ([place]) where she denied any unusual po intake or sick contacts, and a few days after returning, her symptoms got worst, now with persistent nausea and vomiting and some right-sided abdominal pain. She apparently went to [facility] and/or ER and her labs were not that impressive and was apparently was given p.o. antibiotics, but her symptoms did not improve. She presented to our ER a day prior to admission and was sent home, but her symptoms did not improve, and she returned to the ER on the with pertinent findings included white blood cell count of 18.6 with some bandemia, an elevated D-dimer and she was also noted to have fevers as well as tachycardia. She was stabilized in the ER with IV fluids and was given vancomycin, Zosyn and eventually admitted to the ICU where she was placed on IV antibiotics, IV fluids and other supportive care. She was pancultured, and underwent the above-mentioned procedures. Infectious Disease and GI consults were also ordered and as noted above, she underwent a HIDA scan for possible cholecystitis. The patient's condition did improve with less body aches, abdominal pain, but she still had some elevated temperatures. Blood cultures were noted to grow Strep agalactiae -- (group B), which showed sensitivity to multiple IV antibiotics. Her white count did improve to a level of 10.2 by 01/14/2018 and her other labs were essentially within normal limits. Her vital signs did remain stable throughout her admission and by 01/14/2018, she had just low-grade fevers noted. Clinically, patient also voiced improvement in her nausea, vomiting and her abdominal pain, but her right ankle pain kept bothering her; therefore, a septic joint workup was undertaken with a bone scan which was noted to be negative. She also received pain management and physical therapy with some mild improvement in her symptoms. With the help of Infectious Disease and her clinical picture, her likely source of infection is probably GI/ related, and therefore, I had a discussion with the Health insurance agency sales manager for proper PHYSICAL THERAPY SUPERVISOR followup once discharged, to which the patient was agreeable. This might be the likely source of infection, although this has not been verified. Again, clinically speaking and objectively speaking, the patient has improved and repeat blood cultures done on the have been negative x 3 days. DISCHARGE MEDICATIONS: Rocephin 1 gram every day x 11 more days, omeprazole 20 mg daily, Tylenol 500 mg q. 4 p.r.n. for pain or fever, Prednisone taper. DISPOSITION: The patient was discharged home with home health for IV antibiotics and nursing followup. She also has a gynecological followup within the next week for possible fallopian implant removal. CONDITION ON DISCHARGE: Stable. JOB# [id number] MAXIM
[2018-01-17] MEDS ORDERED: Diphenoxylate/Atropine 2.5mg Tab PO PRN (11:57)
[2018-01-17] MEDS: Lactobacillus Rhamnosus GG 15 Billion CFU CAP.SPRINK PO SCH (12:20)
== END 2018-01-17 19:45 | disposition home health service (06) | DRG 720 ==
LOC: ER 16:39 → ICU 19:15
PROVIDERS: ADMIT Internal Medicine; ATTEND Internal Medicine
PROC: 05HY33Z Insertion of Infusion Device into Upper Vein, Percutaneous Approach (ICD-10-PCS; principal; 2018-01-17)
DX: A40.1 Sepsis due to streptococcus, group B (principal); R65.21 Severe sepsis with septic shock; K81.9 Cholecystitis, unspecified; I08.1 Rheumatic disorders of both mitral and tricuspid valves; E44.1 Mild protein-calorie malnutrition; Z68.41 Body mass index [BMI] 40.0-44.9, adult; D64.9 Anemia, unspecified; R19.7 Diarrhea, unspecified; Z98.84 Bariatric surgery status; M25.571 Pain in right ankle and joints of right foot; F41.9 Anxiety disorder, unspecified; D16.7 Benign neoplasm of ribs, sternum and clavicle; Z98.51 Tubal ligation status; R80.9 Proteinuria, unspecified
CPT/HCPCS: 36415-UA; 71045-TC; 71275-TC; 73600-TC-RT; 76705-TC; 76830-TC; 78226-TC; 78315-TC; 80048-TC; 80053-TC; 80061-TC; 80074-90; 80076-TC; 80307; 81001-TC; 82150-TC; 82550-TC; 82948-90; 83036-90; 83605; 83690-TC; 83735-TC; 84100-TC; 84443-TC; 85007-TC; 85025-TC; 85379-TC; 85384-TC; 85610-TC; 85652-TC; 86141-TC; 86430-90; 87046-90; 87086-90; 87230-TC; 90799; 96375; 97530; A9503; A9537; C9113; J0696; J2270; J2543; J3370; J3475; J7030; Q9967; X3904; X7704; Z7610

== ENCOUNTER 2018-02-27 14:58 | Emergency (ER) | payer MEDICAID ==
--- NOTE | 2018-02-27 15:40 | ED Physician Chart ---
ED Chief Complaint/HPI - Patient Information Date Seen:: 02/27/18 Time Seen:: 15:00 Chief Complaint:: Right Leg Pain History of Present Illness:: onset x one week of intermittent, dull, MS type RLE pain; pt denies trauma, LOC , ALOC, AMS, H/As, S/T, neck pain, cough, C/P, SOB, Abd. pain, A/N/V/D/C, fever , chills, paresthesias, weakness, dizziness, visual or gait changes, vertigo, or urinary s/s Allergies:: Allergies Allergy/AdvReac Type Severity Reaction Status Date / Time No Known Allergies Allergy Verified 01/10/18 19:53 Historian:: Patient Review:: Nurse's Note Reviewed, Old Chart Reviewed ED Review of Systems - Review of Systems General/Constitutional: No fever, No chills, No weight loss, No weakness, No diaphoresis, No edema, No loss of appetite Skin: No skin lesions, No rash, No bruising Head: No headache, No light-headedness Eyes: No loss of vision, No pain, No diplopia ENT: No earache, No nasal drainage, No sore throat, No tinnitus Neck: No neck pain, No swelling, No thyromegaly, No stiffness, No mass noted Cardio Vascular: No chest pain, No palpitations, No PND, No orthopnea, No edema Pulmonary: No SOB, No cough, No sputum, No wheezing GI: No nausea, No vomiting, No diarrhea, No pain, No melena, No hematochezia, No constipation, No hematemesis G/U: No dysuria, No frequency, No hematuria, No nacturia Sales Service Assistant: No vaginal discharge, No abnormal vaginal bleed, No contraction Musculoskeletal: No bone or joint pain, No back pain, Muscle pain Endocrine: No polyuria, No polydipsia Psychiatric: No prior psych history, No depression, No anxiety, No suicidal ideation, No homicidal ideation, No auditory hallucination, No visual hallucination Hematopoietic: No bruising, No lymphadenopathy Allergic/Immuno: No urticaria, No angioedema Neurological: No syncope, No focal symptoms, No weakness, No paresthesia, No headache, No seizure, No dizziness, No confusion, No vertigo ED Past Medical History - Past Medical History Obtainable: Yes Past Medical History: No significant medical hx Family History: HTN Social History: Non Smoker, No Alcohol, No Drug Use, Single Surgical History: other (Gastric Bypass Surgery) Psychiatricy History: None Medication: Reviewed Family Medical History - Family Member Mother History Unknown: Yes ED Physical Exam - Physical Examination General/Constitutional: Awake, Well-developed, well-nourished, Alert, No distress, GCS 15, Non-toxic appearing, Ambulatory Head: Atraumatic Eyes: Lids, conjuctiva normal, PERRL, EOMI Skin: Nl inspection, No rash, No skin lesions, No ecchymosis, Well hydrated, No lymphadenopathy ENMT: External ears, nose nl, TM canals nl, Nasal exam nl, Lips, teeth, gums nl , Oropharynx nl, Tonsils nl Neck: Nontender, Full ROM w/o pain, No JVD, No nuchal rigidity, No bruit, No mass, No stridor Other Neck comments:: supple; no meningeal signs; no cervical tenderness Respiratory: Nl effort/Exclusion, Clear to Auscultation, No Wheeze/Rhonchi/Rales Cardio Vascular: RRR, No murmur, gallop, rubs, NL S1 S2, Carotid/Femoral/Distal pulses equal bilaterally GI: No tenderness/rebounding/guarding, No organomegaly, No hernia, Normal BS's, Nondistended, No mass/bruits, No McBurney tenderness Other GI comments:: no pulsatile masses : No CVA tenderness Extremities: No tenderness or effusion, Full ROM, normal strength in all extremities, No edema, Normal digits & nails Other Extremities comments:: no calf tenderness; - Isaac's sign; good motor and sensory functions; good NV functions Neuro/Psych: Alert/oriented, DTR's symmetric, Normal sensory exam, Normal motor strength, Judgement/insight normal, Mood normal, Normal gait, No focal deficits Other Neuro/Psych comments:: no focal signs Misc: Normal back, No paraspinal tenderness ED Labs/Radiology/EKG Results - Radiology Results Comments:: no DVT; NAD ED Septic Shock - . Is Septic Shock (SBP<90, OR Lactate>4 mmol\L) present?: No ED Reassessment (Disposition) - Reassessment Reassessment:: pt is asymptomatic upon discharge Reassessment Condition:: Improved - Diagnosis Diagnosis:: Leg Pain; Leg Sprains and Strains; Myositis; Leg Pain-resolved; Sprains and Strains - Aftercare/Follow up Instructions Aftercare/Follow-Up Instructions:: Counseled pt regarding lab results/diagnosis & need follow up, Refer to Discharge Instructions, Counseled pt & family regarding lab results/diagnosis & need follow up - Patient Disposition Discharge/Transfer:: Home Condition at Disposition:: Stable, Improved (U/S Care Instructions; RTER prn if existing s/s reoccur and/or get worse and/or any other new s/s occur; ACIs given for all above Dx; Refer to Orthopedist/Vascular Surgeon/Heel Blacker [facility]; F/ U with PMD in one day or prn; RTER prn if concerned)
--- NOTE | 2018-02-28 09:02 | Diagnostic Imaging Report ---
Bilateral lower extremity DVT study HISTORY: Pain COMPARISON: None Technique: Longitudinal and transverse sonographic images of the bilateral lower extremity veins were obtained with doppler analysis. FINDINGS: There is normal compressibility, augmentation and phasicity of the bilateral common femoral, superficial femoral, popliteal, and posterior tibial veins. No thrombus is visualized. IMPRESSION: No evidence of thrombus within the bilateral lower extremity veins.
== END 2018-02-27 17:45 | disposition home or self-care (01) ==
LOC: ER 14:58
DX: S86.911A Strain of unspecified muscle(s) and tendon(s) at lower leg level, right leg, initial encounter (principal); M60.9 Myositis, unspecified; X58.XXXA Exposure to other specified factors, initial encounter; Y93.89 Activity, other specified; Y92.89 Other specified places as the place of occurrence of the external cause; Y99.8 Other external cause status
CPT/HCPCS: 93970-TC-50; Z7502

== ENCOUNTER 2018-05-13 14:33 | Emergency (ER) | payer MEDICAID ==
[2018-05-13] MEDS ORDERED: Lactated Ringer 1,000 ML IV ONE (14:45)
[2018-05-13] MEDS ORDERED: metroNIDAZOLE 500mg/NS 100mL 500 MG/100 ML BAG IV ONE ×2 (14:53→15:22)
[2018-05-13] MEDS ORDERED: Acetaminophen 500 MG TAB PO ONE (14:59)
[2018-05-13] MEDS ORDERED: Acetaminophen 500 MG TAB ONE (15:00)
[2018-05-13] MEDS ORDERED: Ampicillin 2 GM in Sodium Chloride 0.9% 100 ML IV SCH (15:00)
[2018-05-13 15:05] LABS: HEMATOCRIT 31.5 % (41.0-60); HEMOGLOBIN 10.3 gm/dL (12-16); MEAN CELL VOLUME 78.7 fl (81-100); MEAN CORPUSCULAR HEMOGLOBIN 25.6 pg (27.0-31.0); MEAN CORPUSCULAR HGB CONC 32.5 pg (28.0-36.0); PLATELET COUNT 356 Th/cmm (150-400); RED BLOOD COUNT 4.01 Mil/cmm (3.80-5.10); RED CELL DISTRIBUTION WIDTH 14.8 % (11.5-20.0); WHITE BLOOD COUNT 10.3 Th/cmm (4.8-10.8)
[2018-05-13 15:17] LABS: INR 0.95 (0.5-1.4); PROTHROMBIN TIME (TEST) 9.9 SECONDS (9.5-11.5)
[2018-05-13] MEDS ORDERED: Clindamycin 150 mg/mL 4mL Vial ONE (15:21)
[2018-05-13 15:22] LABS: ALB/GLOB RATIO 0.8 (1.0-1.8); ALBUMIN 3.5 gm/dL (3.7-5.3); ALKALINE PHOSPHATASE 70 U/L (34-104); AMYLASE SERUM 57 U/L (29-103); BILIRUBIN,TOTAL 0.3 mg/dL (0.3-1.0); BUN - UREA NITROGEN 17 mg/dL (7-25); CARBON DIOXIDE 26.9 mEq/L (21.0-31.0); CHLORIDE 103 mEq/L (98-107); CREATININE - SERUM 0.8 mg/dL (0.6-1.2); GFR AFRICAN-AMERICAN > 60.0 ml/min (>90); GFR NON AFRICAN-AMERICAN > 60.0 ml/min; GLUCOSE 93 mg/dL (70-105); LIPASE 20 U/L (11-82); MAGNESIUM 1.8 mg/dL (1.9-2.7); PHOSPHOROUS 2.6 mg/dL (2.5-5.0); POTASSIUM SERUM 3.9 mEq/L (3.5-5.1); SGOT 15 U/L (13-39); SGPT/ALT 11 U/L (7-52); SODIUM SERUM 137 mEq/L (136-145); TOTAL PROTEIN,SERUM 7.8 gm/dL (6.0-8.3)
[2018-05-13 15:35] LABS: URINE SOURCE CLEAN C
[2018-05-13 15:39] LABS: URINE BILIRUBIN NEGATIVE (NEGATIVE); URINE BLOOD NEGATIVE (NEGATIVE); URINE GLUCOSE (UA) NEGATIVE (NEGATIVE); URINE KETONE NEGATIVE (NEGATIVE); URINE LEUKOCYTE ESTERASE NEGATIVE (NEGATIVE); URINE NITRATE NEGATIVE (NEGATIVE); URINE PROTEIN NEGATIVE (NEGATIVE); URINE UROBILINOGEN 0.2 E.U./dL (0.2 - 1.0)
[2018-05-13 15:46] LABS: URINE CLARITY CLEAR (CLEAR); URINE COLOR YELLOW; URINE MICROSCOPIC INDICATED? YES
[2018-05-13 15:47] LABS: URINE BACTERIA FEW /hpf (NONE SEEN); URINE EPITHELIAL CELLS FEW /lpf (FEW); URINE RBC NONE SEEN /hpf (0-5); URINE WBC 0-2 /hpf (0-5)
[2018-05-13 15:50] LABS: BAND NEUTROPHILE 0 % (0-10); NEUTROPHILS 85 % (40-80)
[2018-05-13 15:51] LABS: EOSINOPHIL 1 % (0-5); LYMPHOCYTE 10 % (20-50); MONOCYTE 4 % (2-10)
[2018-05-13] MEDS ORDERED: Morphine Sulfate 2 mg/mL 1mL Syr ONE (16:02)
[2018-05-13] MEDS ORDERED: Ampicillin 2 GM in Sodium Chloride 0.9% 100 ML IV ONE (17:15)
--- NOTE | 2018-05-13 17:17 | ED Physician Chart ---
ED Chief Complaint/HPI - Patient Information Date Seen:: 05/13/18 Time Seen:: 14:45 Chief Complaint:: dizziness History of Present Illness:: PATIENT PRESENTS TO THE ER WITH HX OF PERIPHERAL TREMORS WITH DIZZINESS AND MILD DYSPNEA FOR TWO HOURS; NO TRAUMA, NO OTHER REMARKABLE S/S patient was admitted in 01/2018 with sepsis thought to be secondary to migrated Essure fallopian IUDs that had migrated to her uterus. Full workup performed on previous hospitalization. Patient has a fever and chills and abdominal pain Allergies:: Allergies Allergy/AdvReac Type Severity Reaction Status Date / Time No Known Allergies Allergy Verified 02/27/18 15:43 Vitals:: Vital Signs - 8 hr 05/13/18 05/13/18 05/13/18 14:45 15:57 16:31 Temp 104.1 F 102.2 F 102.1 F HR 112 106 103 RR 22 21 22 BP 167/86 153/78 O2 Sat % 100 96 98 05/13/18 17:09 Temp 99.2 F HR 100 RR 13 BP 133/72 O2 Sat % 98 Historian:: Patient, Family Member Review:: Nurse's Note Reviewed ED Review of Systems - Review of Systems General/Constitutional: Fever, Chills, Weakness, Loss of appetite Skin: No skin lesions, No rash, No bruising Head: No headache, No light-headedness Eyes: No loss of vision, No pain, No diplopia ENT: No earache, No nasal drainage, No sore throat, No tinnitus Neck: No neck pain, No swelling, No thyromegaly, No stiffness, No mass noted Cardio Vascular: No chest pain, No palpitations, No PND, No orthopnea, No edema Pulmonary: No SOB, No cough, No sputum, No wheezing GI: No nausea, No vomiting, No diarrhea, Pain, No melena, No hematochezia, No constipation, No hematemesis G/U: No dysuria, No frequency, No hematuria Sales Order Clerk: Vaginal discharge Musculoskeletal: No bone or joint pain, Back pain, No muscle pain Endocrine: No polyuria, No polydipsia Psychiatric: No prior psych history, No depression, No anxiety, No suicidal ideation Hematopoietic: No bruising, No lymphadenopathy Allergic/Immuno: No urticaria, No angioedema Neurological: Weakness, Dizziness ED Past Medical History - Past Medical History Obtainable: Yes Past Medical History: Other (Essure fallopian tube IUDs that migrated to her uterus suspected as source of sepsis in 01/2018) Surgical History: other (gastric bypass) Family Medical History - Family Member Mother History Unknown: Yes ED Physical Exam - Physical Examination General/Constitutional: Awake Other Gen/Cons comments:: Overweight weak appearing holding onto the desk. Swaying from side to side. Looked like she was going to pass out at the front office specialist. very ill appearing. Head: Atraumatic Eyes: Lids, conjuctiva normal, PERRL, EOMI Skin: Nl inspection, No rash, No skin lesions, No ecchymosis, No lymphadenopathy Other Skin comments:: extremely warm to the touch. ENMT: External ears, nose nl Other ENMT comments:: mucous membranes dry Neck: Nontender, Full ROM w/o pain, No nuchal rigidity, No stridor Respiratory: Nl effort/Exclusion, Clear to Auscultation, No Wheeze/Rhonchi/Rales Cardio Vascular: No murmur, gallop, rubs, NL S1 S2 Other Cardio Vascular comments:: tachycardia. Other GI comments:: right upper quadrant and epigastric pain to palpation. no peritoneal signs. Some lower abdominal pain as well. more in the midline. Extremities: No tenderness or effusion, Full ROM, normal strength in all extremities, No edema, Normal digits & nails Neuro/Psych: Alert/oriented Other Neuro/Psych comments:: weak appearing. leaning on the desk to prevent herself from falling. Misc: Normal back, No paraspinal tenderness ED Labs/Radiology/EKG Results - Lab Results Results: Laboratory Tests 05/13/18 05/13/18 05/13/18 14:55 14:55 14:55 WBC 10.3 RBC 4.01 Hgb 10.3 L Hct 31.5 L MCV 78.7 L MCH 25.6 L MCHC Differential 32.5 RDW 14.8 Plt Count 356 MPV 8.0 Add Manual Diff YES Band Neutrophils % 0 Neutrophils (Manual) 85 H Lymphocytes 10 L Monocytes 4 Eosinophils 1 ESR PT 9.9 INR 0.95 PTT (Actin FS) 25.3 L Sodium 137 Potassium 3.9 Chloride 103 Carbon Dioxide 26.9 Anion Gap 11.0 BUN 17 Creatinine 0.8 Est GFR ( Amer) > 60.0 Est GFR (Non-Af Amer) > 60.0 BUN/Creatinine Ratio 21.3 Glucose 93 Calcium 9.0 Phosphorus 2.6 Magnesium 1.8 L Total Bilirubin 0.3 AST 15 ALT 11 Alkaline Phosphatase 70 Troponin I Total Protein 7.8 Albumin 3.5 L Globulin 4.3 Albumin/Globulin Ratio 0.8 L Amylase 57 Lipase 20 Urine Source Urine Color Urine Clarity Urine pH Ur Specific [place] Urine Protein Urine Glucose (UA) Urine Ketones Urine Blood Urine Nitrate Urine Bilirubin Urine Urobilinogen Ur Leukocyte Esterase Urine RBC Urine WBC Ur Epithelial Cells Urine Bacteria Urine Test POC Ur Test 05/13/18 05/13/18 05/13/18 14:55 14:55 15:16 WBC RBC Hgb Hct MCV MCH MCHC Differential RDW Plt Count MPV Add Manual Diff Band Neutrophils % Neutrophils (Manual) Lymphocytes Monocytes Eosinophils ESR 60 H PT INR PTT (Actin FS) Sodium Potassium Chloride Carbon Dioxide Anion Gap BUN Creatinine Est GFR ( Amer) Est GFR (Non-Af Amer) BUN/Creatinine Ratio Glucose Calcium Phosphorus Magnesium Total Bilirubin AST ALT Alkaline Phosphatase Troponin I 0.01 Total Protein Albumin Globulin Albumin/Globulin Ratio Amylase Lipase Urine Source CLEAN C Urine Color YELLOW Urine Clarity CLEAR Urine pH 8.0 Ur Specific [place] 1.020 Urine Protein NEGATIVE Urine Glucose (UA) NEGATIVE Urine Ketones NEGATIVE Urine Blood NEGATIVE Urine Nitrate NEGATIVE Urine Bilirubin NEGATIVE Urine Urobilinogen 0.2 Ur Leukocyte Esterase NEGATIVE Urine RBC NONE SEEN Urine WBC 0-2 Ur Epithelial Cells FEW Urine Bacteria FEW Urine Test POC Ur Test 05/13/18 05/13/18 15:18 15:26 WBC RBC Hgb Hct MCV MCH MCHC Differential RDW Plt Count MPV Add Manual Diff Band Neutrophils % Neutrophils (Manual) Lymphocytes Monocytes Eosinophils ESR PT INR PTT (Actin FS) Sodium Potassium Chloride Carbon Dioxide Anion Gap BUN Creatinine Est GFR ( Amer) Est GFR (Non-Af Amer) BUN/Creatinine Ratio Glucose Calcium Phosphorus Magnesium Total Bilirubin AST ALT Alkaline Phosphatase Troponin I Total Protein Albumin Globulin Albumin/Globulin Ratio Amylase Lipase Urine Source Urine Color Urine Clarity Urine pH Ur Specific [place] Urine Protein Urine Glucose (UA) Urine Ketones Urine Blood Urine Nitrate Urine Bilirubin Urine Urobilinogen Ur Leukocyte Esterase Urine RBC Urine WBC Ur Epithelial Cells Urine Bacteria Urine Test NEGATIVE POC Ur Test Negative ED Assessment - Assessment General Assessment: EKG from 15:28:11 p.m. 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 CXR: NAD. PICC line in place in SVC. LACTIC ACID OF 0.58 WAS DRAWN WHEN PATIENT HAD ALREADY RECEIVED 2 LITERS OF FLUIDS AND AT LEAST 1 ANTIBIOTIC. spoke to of Agency. Presented the case to him as well as the previous h/o sepsis in 01/2018. is accepting the patient in transfer (patient is stable for transfer) to [facility]. ED Septic Shock - . Is Septic Shock (SBP<90, OR Lactate>4 mmol\L) present?: No - <6hrs of presentation: Vital Signs: Vital Signs - 8 hr 05/13/18 05/13/18 05/13/18 14:45 15:57 16:31 Temp 104.1 F 102.2 F 102.1 F HR 112 106 103 RR 22 21 22 BP 167/86 153/78 O2 Sat % 100 96 98 05/13/18 17:09 Temp 99.2 F HR 100 RR 13 BP 133/72 O2 Sat % 98 ED Reassessment (Disposition) - Reassessment Reassessment Condition:: Improved - Diagnosis Diagnosis:: Sepsis Fever to 104.1 Chills Anemia Fibroid completely replacing the uterus with suspected uterine foreign bodies of Essure devices that migrated to the uterus - Patient Disposition Discharge/Transfer:: Acute Care (other hosp) Condition at Disposition:: Stable, Improved
[2018-05-13] MEDS ORDERED: Maalox 30 mL Cup PO ONE (19:24)
[2018-05-13] MEDS ORDERED: Maalox 30 mL Cup ONE (19:28)
[2018-05-13 20:23] LABS: INF A SCREEN NEG FOR INF A; INF B SCREEN NEG FOR INF B
--- NOTE | 2018-05-14 08:20 | Diagnostic Imaging Report ---
Exam: CT examination of the pelvis. HISTORY: Cholecystitis. Total DLP equals 784 CTDI equals 16.0 Findings: Multiple contiguous thin section of the abdomen pelvis obtained from lower thorax to pubic symphysis without the administration of oral or intravenous contrast material. The study was correlated with prior exam of 01/11/2018. The study demonstrates normal aeration of lung parenchyma the bases The liver and spleen intact. There is sequela of previous gastric bypass surgery The gallbladder is distended there is no evidence of pericholecystic fluid collection of gallbladder wall thickening. The kidneys demonstrate no evidence of obstructive uropathy or nephrolithiasis. The visualized. Glands are normal. There is evidence of for left lower abdominal wall defect with herniation of fat content. There is evidence for edema and inflammatory changes in inferior portion of left rectus muscle. There is no evidence of diverticular disease or diverticulitis. Uterus is enlarged with fibroid infiltration. There is a question of tubal ligation bilaterally. The urinary bladder is intact. Bony structures demonstrate no evidence for lytic or blastic lesions. IMPRESSION: 1. Unremarkable examination of gallbladder, no evidence for cholelithiasis or pericholecystic fluid collection Small fat-containing hernia left lower abdominal wall with the inflammatory changes in the anterior abdominal wall and extending into the inferior portion of left rectus muscle. Large fibroid uterus.
--- NOTE | 2018-05-14 08:23 | Diagnostic Imaging Report ---
Exam: Pelvic ultrasound HISTORY: Pain Prior exams: 01/11/2018 Findings: Real-time ultrasound examination of the pelvis was performed utilizing transvaginal technique. The study demonstrates prominent uterus measuring 16.8 x 10.0 x 13 cm diameter with large fibroid masses the largest fibroid mass which appears to be lobulated measures approximately 15 x 11 cm diameter. The endometrial of canal is nonvisualized adnexa is normal the ovaries not visualized. Small amount of free fluid is noted in cul-de-sac. IMPRESSION: Bulky enlarged fibroid uterus. Largest fibroid mass measures 15 x 11 cm. Ovaries not visualized. Small amount of free fluid in the cul-de-sac.
--- NOTE | 2018-05-14 08:24 | Diagnostic Imaging Report ---
Portable chest x-ray Time: 1707 History: PICC line placement Allowing for portable technique the heart size is normal. No focal pulmonary parenchymal processes. No hilar or mediastinal abnormalities. Right-sided PICC line terminates indicated. Impression: No acute abnormalities.
== END 2018-05-13 21:30 | disposition short-term general hospital (02) ==
LOC: ER 14:33
DX: A41.9 Sepsis, unspecified organism (principal); D64.9 Anemia, unspecified; D25.9 Leiomyoma of uterus, unspecified
CPT/HCPCS: 99285; 96365; 96368; 96375; 93005; 71045; 76856; 74176; 84484; 36415; 83605; 87804 ×2; 85007; 85025; 85610; 85652; 81001; 82150; 81025 ×2; 83690; 83735; 84100; 80053; 87040 ×2; J2270; J1885; J2060; J3490; J0290 ×2; 90799; X5958; Z7610